=== PATIENT | female | born 1965 | race Caucasian/White ===

== ENCOUNTER 2022-10-01 15:03 | Outpatient (REF) | payer OTHER, SELFPAY ==
[2022-10-01 15:37] LABS: COVID-19 Test Negative (Negative); IDNOW Serial# 16C4AD1C
== END 2022-10-01 15:04 | disposition home or self-care (01) ==
LOC: HO.LAB 15:03
PROVIDERS: Visit Provider Internal Medicine
DX: Z20.822 Contact with and (suspected) exposure to COVID-19 (principal)
CPT/HCPCS: 87635; C9803

== ENCOUNTER 2025-01-22 15:08 | Outpatient (AMB) | payer OTHER, SELFPAY ==
--- NOTE | 2025-01-22 16:02 | AM.OFFWIN_ITS ---
Intake Vital Signs 01/22/25 16:03 Height 5 ft 7 in Weight 278 lb BMI 43.5 BP 116/70 Blood Pressure Location Lt brachial Position Sitting Pulse 92 Pulse Source Pulse Oximeter Temp 97.8 F Temp Source Oral Pulse Oximetry (%) 96 Intake Visit Reasons: [employer] congestion, cough Patient Tobacco Use Status: Never used Tobacco Allergies sulfacetamide [From Sulfacet-R] Allergy (Severe, Verified 01/22/25 16:05) Unknown sulfur [From Sulfacet-R] Allergy (Severe, Verified 01/22/25 16:05) Unknown amoxicillin [From Augmentin] Allergy (Mild, Verified 01/22/25 16:05) Diarrhea clavulanic acid [From Augmentin] Allergy (Mild, Verified 01/22/25 16:05) Diarrhea clindamycin Allergy (Mild, Verified 01/22/25 16:05) Diarrhea duloxetine [From Cymbalta] Allergy (Mild, Verified 01/22/25 16:05) Hives gabapentin Allergy (Mild, Verified 01/22/25 16:05) Hives pregabalin [From Lyrica] Allergy (Mild, Verified 01/22/25 16:05) Hives sarvela Allergy (Mild, Uncoded 01/22/25 16:05) Unknown Do you need a note to return to daycare/school/sports/work: No HPI HPI Comments History of Present Illness Details 60 y/o female patient who presents to [facility] walk in clinic with c/o URI symptoms since this morning. ON LICENSE OF [facility] Medical History (Updated 01/22/25 @ 16:17 by Yocasta Weaver NP) Cough Acute respiratory disease Social History Patient Tobacco Use Status: Never used Tobacco Review of Systems Const All systems reviewed & are unremarkable except as noted in HPI and below Physical Exam Vital Signs: Last Vital Signs Temp 97.8 F 01/22/25 16:03 Pulse 92 01/22/25 16:03 BP 116/70 01/22/25 16:03 Pulse Ox 96 01/22/25 16:03 BMI result Body Mass Index 43.5 Const General: cooperative and no acute distress Nutritional Appearance: obese morbidly obese Orientation/consciousness: patient oriented x3 HEENT Head: Yes normocephalic Ears: external ears normal and TM's normal bilaterally General nose exam: No nasal discharge present Face and sinus: Yes sinus tenderness Mouth: moist mucous membranes Throat: Yes uvula midline Resp Effort & Inspection: normal respiratory effort and able to speak in complete sentences Auscultation: clear to auscultation bilaterally, no crackles, no rales, no rhonchi and no wheezes Cardio Heart sounds: S1 normal heart sound present and S2 normal heart sound present Neuro General: patient oriented x3 Assessment & Plan Assessment & Plan (1) Acute respiratory disease: Code(s): J06.9 - Acute upper respiratory infection, unspecified Plan: OTC cough remedies Rest and hydrate well with warm fluids. (2) Cough: Code(s): R05.9 - Cough, unspecified Qualifiers: Cough type: acute Qualified Code(s): R05.1 - Acute cough Plan: OTC cough remedies Rest and hydrate well with warm fluids. Medications: New benzonatate 200 mg (2 x 100 mg) PO BID 90 caps 0RF cough J06.9 - Acute upper respiratory infection, unspecified, R05.1 - Acute cough dextromethorphan-guaifenesin 5-100 mg/5 mL (Robitussin Cough-Chest Congestion DM) 10 mL PO Q4-8H PRN 1,000 mL 0RF cough J06.9 - Acute upper respiratory infection, unspecified, R05.1 - Acute cough Coding Level of Care Code New Pt Level 4 (24052) Diagnoses Acute respiratory disease J06.9 Acute cough R05.1 Cough type: acute Time Spent (min) 20
[2025-01-22 16:03] VITALS: BP 116/70; PULSE 92; TEMP 36.6; O2SAT 96; BMI 43.5
--- OUTSIDE RECORDS SUMMARY | 2025-01-22 17:25 | XMS_ITS | Encounter Summary ---
Author Organization [facility] Address [address] [place] [address] Care Team Providers Care [employer] M[employer] Name Role Phone Gail Judd Primary Care Provider [phone] Encounter Details Date Type Department Care Team (Late st Contact Info) Description 04/14/2023 Ophthalmology Data Conversion [facility] Ophthalmology [address] [place] [id number] Jennifer Simmons MD [address] [place] [id number] Social History Tobacco Use Types Packs/Day Years Used Date Smoking Tobacco: Never Assessed Comments Unknown Sex and Gender Information Value Date Recorded Sex Assigned at Not on file Legal Sex Female 10:05 AM EDT Gender Identity Not on file Sexual Orientation Not on file documented as of this encounter Plan of Treatment Upcoming Encounters Date Type Department Care Team (Late st Contact Info) Description 04/05/2025 12:00 PM EDT Follow-Up [facility] Ophthalmology [address] [place] [phone] Jennifer Simmons MD [address] [place] [id number] documented as of this encounter Visit Diagnoses Not on filedocumented in this encounter Care Teams [employer] M[employer] Relationship Specialty Start Date End Date Gail Judd [address] [place] [id number] PCP - General Internal Medicine 09/13/23 documented as of this encounter
--- OUTSIDE RECORDS SUMMARY | 2025-01-22 17:25 | XMS_ITS | Clinical Summary ---
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 CHEMISTRY METHOD 11/02/2024 6:58 PM EST [facility] Blood Venous blood specimen / Unknown Venipuncture / Unknown 11/02/2024 3:53 PM EST 11/02/2024 3:53 PM EST us Lay KEENAN LAB BLOOD ORDERABLES Final Result [facility] [address] [place] [address], * Hemoglobin A1c (11/02/2024 3:53 PM EST) Hemoglobin A1C 6.2 <6.5 % LAB CHEMISTRY METHOD 11/02/2024 8:16 PM EST [facility] Mean Bld Glu Estim. 131 mg/dL LAB CHEMISTRY METHOD 11/02/2024 8:16 PM EST [facility] Blood Venous blood specimen / Unknown Venipuncture / Unknown 11/02/2024 3:53 PM EST 11/02/2024 3:53 PM EST us Lay KEENAN LAB BLOOD ORDERABLES Final Result [facility] [address] [place] [address], [place] [phone] * (ABNORMAL) Basic metabolic panel (11/02/2024 3:53 PM EST) Sodium 137 133 - 145 mmol/L LAB CHEMISTRY METHOD 11/02/2024 6:[address] [facility] Potassium 4.3 3.5 - 5.5 mmol/L LAB CHEMISTRY METHOD 11/02/2024 6:[address] [facility] Chloride 103 96 - 110 mmol/L LAB CHEMISTRY METHOD 11/02/2024 6:[address] [facility] CO2 28 21 - 32 mmol/L LAB CHEMISTRY METHOD 11/02/2024 6:[address] [facility] Anion Gap 6 3 - 11 LAB CHEMISTRY METHOD 11/02/2024 6:[address] [facility] Glucose 107(H) 70 - 100 mg/dL LAB CHEMISTRY METHOD 11/02/2024 6:[address] [facility] BUN 21 5 - 25 mg/dL LAB CHEMISTRY METHOD 11/02/2024 6:[address] [facility] Creatinine 0.83 0.50 - 1.10 mg/dL LAB CHEMISTRY METHOD 11/02/2024 6:[address] [facility] eGFR 82 >=60 mL/min/1. 73m2 LAB CHEMISTRY METHOD 11/02/2024 6:[address] [facility] Comment:Calculation based on the??Chronic Kidney Disease Epidemiology Collaboration (CKD-EPI) equation refit??without adjustment for race. BUN/Creatinine Ratio 25.3 LAB CHEMISTRY METHOD 11/02/2024 6:[address] [facility] Calcium 9.2 8.5 - 10.5 mg/dL LAB CHEMISTRY METHOD 11/02/2024 6:46 PM EST [facility] Blood Venous blood specimen / Unknown Venipuncture / Unknown 11/02/2024 3:53 PM EST 11/02/2024 3:53 PM EST us Ioana Carbajal MD LAB BLOOD ORDERABLES Final Resul t [facility] ([facility]) [facility] [address] [place] [address], * ANT SCREENING DIGITAL (05/25/2024 11:50 AM EDT) Anatomical Region Laterality Modality Mammography 05/25/2024 9:50 AM EDT Narrative 05/25/2024 11:50 AM EDT [facility] Diagnostic Imaging Department [address] [place] [address] Patient: ??SASHA ROUSSEAU ?/Age/Sex: 1965 - 59 - F Unit#: ??[id number] ? Location/Status: ??SPDIMAM/REG CLI ? Mnemonic/Ordering Site: ??DIGSC/SPMAM Ordering Physician: ??CLAUDY JUDD MD Ant Screening Digital - 05/25/24 - 1013 Report Status:Signed EXAM: Ant Screening Digital EXAM DATE AND TIME: 05/25/2024 10:13 AM HISTORY: ??Screening. Reduction mammoplasty in 1983. COMPARISON: ??02/17/23, 11/09/18, 05/20/15 TECHNIQUE: Bilateral digital breast tomosynthesis was performed in the CC and MLO projections. Computer aided detection with [employer] 3D 3.1 was employed. TISSUE DENSITY: a. The breasts are almost entirely fatty. FINDINGS: A new 3 mm circumscribed nodule is seen in the axillary tail of the left breast, close to the lateral skin line. This is not visualized in the CC proje ction. MLO spot compression tomosynthesis views and exaggerated CC tomosynthesis views of the left breast are recommended. No grouped microcalcifications or areas of architectural distortion are seen. The skin and vascularity are unremarkable. IMPRESSION: 1. 3 mm left breast nodule, for which additional views are recommended. The patient will be called back. 2. Stable mammographic appearance of the right breast. No evidence of malignancy is seen. BI-RADS: ??Category 0: Incomplete - Need Additional Imaging Evaluation RECOMMENDATION(S): 1: Special mammographic view(s) needed LEFT Dictating Physician: ??YAS BERMAN MD Electronically Signed by: ??YAS BERMAN MD Dic Date/Time: ??05/25/24 1148 Sign date/Time: ??05/25/24 1150 Procedure Note Yas Berman MD - 09/13/2024 [facility] Diagnostic Imaging Department [address] [place] [address] Patient: SASHA ROUSSEAU /Age/Sex: 1965 - 59 - F Unit#: [id number] Location/Status: [facility] CLI Mnemonic/Ordering Site: [facility] Ordering Physician: CLAUDY JUDD MD Ant Screening Digital - 05/25/24 - 1013 Report Status:Signed EXAM: Ant Screening Digital EXAM DATE AND TIME: 05/25/2024 10:13 AM HISTORY: Screening. Reduction mammoplasty in 1983. COMPARISON: 02/17/23, 11/09/18, 05/20/15 TECHNIQUE: Bilateral digital breast tomosynthesis was performed in the CCand MLO projections. Computer aided detection with [employer] 3D 3.1was employed. TISSUE DENSITY: a. The breasts are almost entirely fatty. FINDINGS: A new 3 mm circumscribed nodule is seen in the axillary tail of the left breast, close to the lateral skin line. This is not visualized in the CCproje ction. MLO spot compression tomosynthesis views and exaggerated CCtomosynthesis views of the left breast are recommended. No grouped microcalcifications or areas of architectural distortion areseen. The skin and vascularity are unremarkable. IMPRESSION: 1. 3 mm left breast nodule, for which additional views are recommended.The patient will be called back. 2. Stable mammographic appearance of the right breast. No evidence of malignancy is seen. BI-RADS: Category 0: Incomplete - Need Additional Imaging Evaluation RECOMMENDATION(S): 1: Special mammographic view(s) needed LEFT Dictating Physician: YAS BERMAN MD Electronically Signed by: YAS BERMAN MD Dic Date/Time: 05/25/24 1148 Sign date/Time: 05/25/24 1150 Claudy Judd MD IMG BI PROCEDURES Final Result * HIV Screening (04/17/2024) Pathologist [facility] HIV Screening abstracted Historical Provider HEALTH MAINTENANCE Final Result * Hepatitis C Screening (04/17/2024) [facility] Hepatitis C Screening abstracted Result [facility] Provider HEALTH MAINTENANCE Final Result * (ABNORMAL) Lipid panel (04/17/2024) [facility] LDL/HDL Ratio 4 0 - 4 Triglycerides 270(A) 0 - 150 mg/dL Cholesterol 142 0 - 200 mg/dL HDL 38(A) >=40 mg/dL LDL Cholesterol 50 0 - 100 mg/dL Blood Venous blood specimen / Unknown Result [facility] Provider LAB BLOOD ORDERABLES Nati l Result * Urine Albumin Creatinine Ratio (02/28/2024) [facility] Urine Albumin Creatinine Ratio abstracted Result [facility] Provider HEALTH MAINTENANCE Final Result * Diabetes Foot Exam (01/19/2024) [facility] Diabetes: Annual Foot Exam abstracted Result [facility] Provider HEALTH MAINTENANCE Final Result * Colonoscopy (06/28/2015) [facility] Colonoscopy no interpretation , abstracted Anatomical Region Laterality Modality Other Result [facility] Provider HEALTH MAINTENANCE Final Result * Cervical Cancer Screening: HPV (01/13/2012) [facility] Cervical Cancer Screening: HPV negative, abstracted Result [facility] Provider HEALTH MAINTENANCE Final Result from Last 3 Months or Most Recently Relevant to Health Maintenance [place] [address] [place] [address] [employer] PLAN Care Teams Hitcher Relationship Specialty Start Date End Date Claudy Judd MD [address] [facility] [address] [place] [address] PCP - General Internal Medicine 06/13/21
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
--- OUTSIDE RECORDS SUMMARY | 2025-01-22 17:25 | XMS_ITS | Encounter Summary ---
Author Organization [facility] Address [address] [place] [address] Care Team Providers Care Entry Tech Name Role Phone Gail Judd Primary Care Provider Encounter Details Date Type Department Care Team (Late st Contact Info) Description 04/14/2023 Ophthalmology Data Conversion [facility] Ophthalmology [address] [place] [phone] Jennifer Simmons MD [address] [place] [phone] Social History Tobacco Use Types Packs/Day Years [...] Info) Description 04/05/2025 12:00 PM EDT Follow-Up [facility] Ophthalmology [address] [place] [phone] Jennifer Simmons MD [address] [place] [phone] documented as of this encounter Visit Diagnoses Not on filedocumented in this encounter Care Teams Entry Tech Relationship Specialty Start Date End Date Gail Judd [address] [place] [phone] PCP - General Internal Medicine 09/13/23 documented as of this encounter
--- OUTSIDE RECORDS SUMMARY | 2025-01-22 17:25 | XMS_ITS | Encounter Summary ---
Author Organization [address] [place] [address] Care Team Providers Care Reimbursement Consultant Name Role Phone Gail Judd MD Primary Care Provider [phone] Reason for Visit * Reason Onset Date Comments appointment 01/22/2025 Encounter Details Date Type Department Care Team ([facility] st Contact Info) Description 01/22/2025 Telephone [facility] 175 [facility] [address] [place] [phone] Ioana Carbajal MD 175 [facility] [address] [place] [address] appointment Social History Tobacco Use Types Packs/Day Years [...] PM EDT documented as of this encounter Progress Notes * Flores Cary - 01/22/2025 11:04 AM EST Patient called requesting a sooner a patient since she's been coughing, has congestion and had a fever yesterday. Was advice to visit urgent care since she had fever yesterday. Patient asked for urgent care locations, a couple of urgent care were mentioned. She will call her insurance to ask for recommendations on urgent cares that accept her insurance. documented in this encounter Plan of Treatment Upcoming Encounters Date Type Department Care Team (Late st Contact Info) Description 01/26/2025 9:00 AM EST Ancillary Procedure [facility] - [facility] 101 300 [facility] 101 [place] [address] 03/12/2025 1:00 PM EDT Consult Orthopedic Surgery - [place] 250 175 [facility] 250 [place] [address] Jero Steven DPM 175 [facility] 250 [place] [address] 03/20/2025 2:45 PM EDT Office Visit Bariatric Surgery - [place] 175 [facility] 120 [place] [phone] Sadi Read MD 175 [facility] 120 [place] [address] 04/03/2025 10:30 AM EDT Office Visit Internal Medicine - [place] 175 [facility] 200 [place] [phone] Meghana Bassett NP 175 [facility] 200 [place] [address] 04/16/2025 11:30 AM EDT Office Visit Vascular Surgery - [place] 300 [facility] [address] [place] [phone] Cielo Mitchell PA [address] [place] [address] 06/18/2025 2:30 PM EDT Office Visit Pulmonolgy - [place] [address] [place] [phone] Ioana Carbajal MD 175 [facility] 200 [place] [address] documented as of this encounter Visit Diagnoses Not on filedocumented in this encounter Additional Health Concerns Assessment Noted Time PHQ-9 Depression Total Score: 12 025 11:52 AM EST documented as of this encounter Care Teams Reimbursement Consultant Relationship Specialty Start Date End Date Gial Judd MD 175 [facility] 200 [place] [phone] PCP - General Internal Medicine 06/13/21 documented as of this encounter
--- OUTSIDE RECORDS SUMMARY | 2025-01-22 17:25 | XMS_ITS | Referral Summary ---
Author Organization [facility] Address [address] [place] [address] Care Team Providers Care Commodity Broker Name Role Phone Gail Judd Primary Care Provider [phone] Active Problems Problem Noted Date Diagnosed Date Glaucoma suspect of both eyes 09/14/2023 Social History Tobacco Use Types Packs/Day Years Used Date Smoking Tobacco: Never Assessed Comments Unknown Sex and Gender Information Value Date Recorded Sex Assigned at Not on file Legal Sex Female 10:05 AM EDT Gender Identity Not on file Sexual Orientation Not on file Plan of Treatment Upcoming Encounters Date Type Department Care Team (Late st Contact Info) Description 04/05/2025 12:00 PM EDT Follow-Up [facility] Medical [facility] Ophthalmology [address] [place] [address] Jennifer Simmons MD 20 [place] [address] Insurance [facility] MEDICAID Care Teams Commodity Broker Relationship Specialty Start Date End Date Gail Judd [address] [place] [address] PCP - General Internal Medicine 09/13/23
--- OUTSIDE RECORDS SUMMARY | 2025-01-22 17:25 | XMS_ITS | Encounter Summary ---
Author [place] [address] Care Team Providers Care Lozenge Maker Name Role Phone Gail Judd MD Primary Care Provider [phone] Reason for Visit * Reason Onset Date Comments Medical Records 01/18/2025 Encounter Details Date Type Department Care Team (Late st Contact Info) Description 01/18/2025 Telephone [facility]iology Associates [facility] [address] [place] [phone] Gail Judd MD [address] [place] [address] Medical Records Social History Tobacco Use Types Packs/Day Years [...] as of this encounter Progress Notes * Shira Yosi - 01/18/2025 4:32 PM EST Faxed [facility] record request to [employer] Copying service at [phone] on 01/02/2025 documented in this encounter Plan of Treatment Upcoming Encounters Date Type Department Care Team (Late st Contact Info) Description 01/26/2025 9:00 AM EST Ancillary Procedure [facility] - [facility] 101 300 [facility] 101 [place] [address] 03/12/2025 1:00 PM EDT Consult Orthopedic Surgery - [place] 250 175 [facility] 250 [place] [phone] Jero Steven DPM 175 [facility] 250 [place] [address] 03/20/2025 2:45 PM EDT Office Visit Bariatric Surgery [facility] 175 [facility] 120 [place] [phone] Sadi Read MD 175 [facility] 120 [place] [address] 04/03/2025 10:30 AM EDT Office Visit Internal Medicine - [place] 175 [facility] 200 [place] [phone] Meghana Bassett NP 175 [facility] 200 [place] [address] 04/16/2025 11:30 AM EDT Office Visit Vascular Surgery - [place] 300 [facility] [address] [place] [phone] Cielo Mitchell PA 300 [facility] 210 [place] [address] 06/18/2025 2:30 PM EDT Office Visit Pulmonolgy - [place] [address] [phone] Ioana Carbajal MD [address] [address] documented as of this encounter Visit Diagnoses Not on filedocumented in this encounter Additional Health Concerns Assessment Noted Time PHQ-9 Depression Total Score: 12 025 11:52 AM EST documented as of this encounter Care Teams Lozenge Maker Relationship Specialty Start Date End Date Gail Judd MD [address] [phone] PCP - General Internal Medicine 06/13/21 documented as of this encounter
--- OUTSIDE RECORDS SUMMARY | 2025-01-22 17:25 | XMS_ITS | Clinical Summary ---
Author Organization [facility] Address [address] [place] [address] Care Team Providers Care Ripsawyer Name Role Phone Gail Judd Primary Care Provider [phone] Active Problems Problem Noted Date Diagnosed Date [...] Info) Description 04/05/2025 12:00 PM EDT Follow-Up [facility] Ophthalmology [address] [place] [address] Jennifer Simmons MD 20 [place] [address] Health Maintenance Due Date Last Done Comments Cervical Cancer Screening 1965 Cologuard 1967 Colon Cancer Screening 1965 Colonoscopy 1967 FOBT / Fit Test 1965 HIV Screening 1965 HPV and Pap Smear 1967 Hepatitis C Screening 1967 Pap Smear 1967 Sigmoidoscopy 1967 Hepatitis B Vaccines (1 of 3 - 19+ 3-dose series) 1986 Mammogram 2007 Pneumococcal Vaccine: 50+ Ye ars (2 of 2 - PCV) 09/05/2013 09/05/2012, 10/30/2009 Zoster Vaccines (1 of 2) 2017 DTaP,Tdap,and Td Vaccines (2 - Td or Tdap) 05/14/2021 05/14/2011 COVID-19 Vaccine (3 - 2023-2 5 season) 2024 04/16/2021, 03/26/2021 Influenza Vaccine (#1) 2024 9, 01/19/2019, 10/26/2017, Additional history exists Alcohol/Substance Use Screening 11/29/2024 Depression Screening and Follow-Up 11/29/2024 Social Drivers of Health Emmie ual Screening 11/29/2024 RSV Vaccine (60+ years old a nd patients) (1 - 1-dose 75+ series) 2042 Insurance [employer] MEDICA[employer] Care Teams Ripsawyer Relationship Specialty Start Date End Date Gail Judd [address] [place] [address] PCP - General Internal Medicine 09/13/23
--- OUTSIDE RECORDS SUMMARY | 2025-01-22 17:25 | XMS_ITS | Encounter Summary ---
Author Organization [place] [address] Care Team Providers Care Supersonic Engineer Name Role Phone Gail Judd MD Primary Care Provider [phone] Reason for Visit * Reason Onset Date Comments prior auth 12/12/2024 Encounter Details Date Type Department Care Team ([facility] st Contact Info) Description 12/12/2024 Telephone Bariatric Surgery - [place] 175 [facility] [address] [place] [phone] Juany Leon MA prior auth Social History Tobacco Use Types Packs/Day Years [...] as of this encounter Progress Notes * Lorna Pineda - 12/18/2024 3:09 PM EST Please follow up with patient about PA. Patient has been waiting since Aug. Pharmacy has informed her that she needs it * Juany Leon MA - 12/12/2024 2:24 PM EST Pt calling the office . Pt wants to know what's going on with her injection medication. She states she been waiting a while. Want to know if knew prior auth was done. Please call back pt at [phone] documented in this encounter Plan of Treatment Upcoming Encounters Date Type Department Care Team (Late st Contact Info) Description 01/26/2025 9:00 AM EST Ancillary Procedure [facility] - [facility] 101 300 [facility] 101 [place] [phone] 03/12/2025 1:00 PM EDT Consult Orthopedic Surgery - [place] 250 175 [facility] 250 [place] [phone] Jero Steven DPM 175 [facility] 250 [place] [address] 03/20/2025 2:45 PM EDT Office Visit Bariatric Surgery - [place] 175 [facility] 120 [place] [phone] Sadi Read MD 175 [facility] 120 [place] [address] 04/03/2025 10:30 AM EDT Office Visit Internal Medicine - [place] 175 [facility] 200 [place] [phone] Meghana Bassett NP 175 [facility] 200 [place] [address] 04/16/2025 11:30 AM EDT Office Visit Vascular Surgery - [place] 300 [facility] [address] [place] [address] Cielo Mitchell PA 300 [facility] 210 [place] [address] 06/18/2025 2:30 PM EDT Office Visit Pulmonolgy - [place] 175 [facility] 200 [place] [phone] Ioana Carbajal MD 175 [facility] 200 [place] [address] documented as of this encounter Visit Diagnoses Not on filedocumented in this encounter Care Teams Supersonic Engineer Relationship Specialty Start Date End Date Gail Judd MD [address] [phone] PCP - General Internal Medicine 06/13/21 documented as of this encounter
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
== END 2025-01-22 16:16 | disposition home or self-care (01) ==
PROVIDERS: Visit Provider Nurse Practitioner Family
DX: J06.9 Acute upper respiratory infection, unspecified (principal); R05.1 Acute cough

== ENCOUNTER → 2025-01-22 15:08 | Outpatient (BNVA) | payer OTHER, SELFPAY | DX: J06.9 Acute upper respiratory infection, unspecified (principal); R05.1 Acute cough | CPT/HCPCS: 99202 ==

== ENCOUNTER 2025-06-21 14:09 | Outpatient (AMB) | payer OTHER, SELFPAY ==
--- OUTSIDE RECORDS SUMMARY | 2025-06-21 14:13 | XMS_ITS ---
Author Name [facility] Organization Unknown Care Team Organization Name Specialty Phone Email Start Date End Da pablo [facility] 10/06/2022 07/17/20 24
--- OUTSIDE RECORDS SUMMARY | 2025-06-21 14:13 | XMS_ITS | Encounter Summary ---
Author Organization [facility] Address [address] [place] [address] Care Team Providers Care Professor Of Business Administration Name Role Phone Gail Judd Primary Care Provider [phone] Encounter Details Date Type Department Care Team (Late st Contact Info) Description 04/14/2023 Ophthalmology Data Conversion [facility] Ophthalmology [address] [place] [address] Jennifer Simmons MD [address] [place] [address] Social History Tobacco Use Types Packs/Day Years Used Date Smoking Tobacco: Never Assessed Comments Unknown Sex and Gender Information Value Date Recorded Sex Assigned at Not on file Legal Sex Female 10:05 AM EDT Gender Identity Not on file Sexual Orientation Not on file documented as of this encounter Plan of Treatment Not on file documented as of this encounter Visit Diagnoses Not on filedocumented in this encounter Care Teams Professor Of Business Administration Relationship Specialty Start Date End Date Gail Judd [address] [place] [address] PCP - General Internal Medicine 09/13/23 documented as of this encounter
--- OUTSIDE RECORDS SUMMARY | 2025-06-21 14:13 | XMS_ITS | Clinical Summary ---
Author Organization Patient Business Ser [facility] Address [address] [place] [address] Care Team Providers Care Watchmaking Teacher Name Role Phone Claudy Judd MD Primary Care Provider [phone] Allergies Active Allergy Reactions Criticality Noted Date Comments Amoxicillin-Pot Clavulanate Rash 02/29/20 15 Diarrhea Canagliflozin Rash 08/22/2020 Vaginal pruritus Citalopram Rash 05/03/2014 Clindamycin Diarrhea 11/08/2024 Duloxetine Hives 08/02/2012 Gabapentin Rash 09/30/2012 Glipizide Hives 08/22/2020 House Dust 08/05/2016 Metformin Diarrhea High 08/22/2020 Milnacipran Hives 08/02/2012 Other 10/03/2024 Seasonal Pollen Extracts 08/05/2016 Prednisone Hives,Wheezing 12/06/2014 Pregabalin Hives 11/08/2024 Sulfa (Sulfonamide Antibiotics) Anaphylaxis High 01/27/2006 Medications pramoxine 1 % lotion Apply 1 g topically. 02/04/20 24 Active meclizine (ANTIVERT) 12.5 mg tablet Take 1 tablet (12.5 mg total) by mouth. 02/04/20 24 Active ondansetron (ZOFRAN) 4 mg tablet Take 1 tablet (4 mg total) by mouth. 01/20/20 24 Active albuterol HFA (PROAIR HFA ; PROVENTIL HFA ; VENTOLIN HFA) 90 mcg/actuation inhaler Inhale 2 puffs by mouth. 11/23/20 23 Active albuterol 2.5 mg /3 mL (0.083 %) nebulizer solution Inhale 3 mL (2.5 mg total) by mouth. 11/23/20 23 Active fexofenadine (JAKUB) 180 mg tablet Take 1 tablet (180 mg total) by mouth 1 (one) time each day. 11/23/20 23 Active venlafaxine (EFFEXOR) 37.5 mg tablet Take 1 tablet (37.5 mg total) by mouth 1 (one) time each day. Active flash glucose scanning reader (Hipcamp LACY 2 READER MISC) 1 Device by Not Applicable route. 02/05/20 23 Active venlafaxine XR (EFFEXOR-XR) 75 mg 24 hr capsule Take 1 capsule (75 mg total) by mouth 1 (one) time each day. 12/08/19 22 Active hydrOXYzine pamoate (VISTARIL) 25 mg capsule Take 1 capsule (25 mg total) by mouth 1 (one) time each day. 12/08/19 22 Active methenamine hippurate (HIPREX) 1 gram tablet TK 1 T PO BID 06/06/20 19 Active rOPINIRole (REQUIP) 0.25 mg tablet Take 1 tablet (0.25 mg total) by mouth. 02/26/20 17 Active simethicone (MYLICON) 80 mg chewable tablet Chew 1 tablet (80 mg total) 2 (two) times a day. 11/08/20 24 Active omeprazole (PriLOSEC) [address] capsule Take 1 capsule (20 mg total) by mouth 1 (one) time each day. 90 capsule 3 12/05/19 25 Active topiramate (TOPAMAX) 50 mg tablet TAKE 1 TABLET BY MOUTH DAILY FOR 30 DAYS. 30 tablet 1 12/07/19 25 Active estradioL (ESTRACE) 0.01 % (0.1 mg/gram) vaginal creamIndicatio ns:Vaginal dryness Insert 4 g into the vagina 1 (one) time each day. 42.5 g 11 01/04/20 25 Active flash glucose sensor (FreeStyle Lacy 2 Sensor) kit Apply 1 EA topically every 14 (fourteen) days. 6 each 3 01/16/20 25 Active ketoconazole (NIZORAL) 2 % cream Apply topically 2 (two) times a day. 30 g 2 01/26/20 25 Active cyclobenzaprin e (FLEXERIL) 10 mg tablet TAKE 1 TABLET BY MOUTH 3 TIMES DAILY NEEDED FOR MUSCLE SPASMS. 90 tablet 1 02/27/20 25 Active loratadine (CLARITIN) 10 mg tablet Take 1 tablet (10 mg total) by mouth 1 (one) time each day. 90 tablet 2 02/27/20 25 Active pen needle, diabetic 32 gauge x 32 needle 1 each by Not Applicable route 2 (two) times a day. 100 each 3 03/01/20 25 Active montelukast (SINGULAIR) 10 mg tablet Take 1 tablet (10 mg total) by mouth at bedtime. at bedtime. 30 tablet 2 03/14/20 25 Active ferrous sulfate 325 mg (65 mg iron) EC tablet TAKE 1 TABLET BY MOUTH DAILY. 30 tablet 4 04/02/20 25 Active oxymetazoline (Afrin, oxymetazoline, ) 0.05 % nasal sprayIndicatio ns:Nasal congestion Administer 2 sprays into each nostril 2 (two) times a day for 3 days. 30 mL 04/03/20 25 Active tirzepatide, weight loss, (Zepbound) 5 mg/0.5 mL solutionIndica tions:BMI 40.0-44.9, adult ([facility] V24, [facility] V28) Inject 5 mg under the skin every 7 (seven) days. 2 mL 3 04/03/20 25 Active Pure Comfort Safety Lancets 30 gauge misc USE DIRECTED TWICE DAILY 100 each 04/12/20 25 Active blood sugar diagnostic (FreeStyle Lite Strips) test strip USE TO TEST BLOOD SUGARS 3 TIMES DAILY 100 each 2 04/12/20 25 Active isosorbide mononitrate (IMDUR) 60 mg 24 hr tablet TAKE 1 TABLET BY MOUTH DAILY. 90 tablet 1 04/12/20 25 Active nystatin (MYCOSTATIN) 100,000 unit/gram powder Apply topically 3 (three) times a day. 90 g 10 04/20/20 25 Active rosuvastatin (CRESTOR) 5 mg tablet TAKE 1 TABLET BY MOUTH DAILY. 90 tablet 1 05/04/20 25 Active diclofenac (VOLTAREN) 1 % topical gel APPLY 1 DOSE TOPICALLY 2 TIMES DAILY. 100 g 4 05/15/20 25 Active diclofenac (Voltaren Arthritis Pain) 1 % topical gel Apply 4 g topically 2 (two) times a day. 240 g 1 05/16/20 25 025 Active ibuprofen (ADVIL,MOTRIN) 600 mg tablet Take 1 tablet (600 mg total) by mouth every 8 (eight) hours if needed for moderate pain. for pain 60 tablet 1 05/18/20 25 Active insulin lispro (HumaLOG KwikPen) 100 unit/mL injection pen INJECT THREE TIMES DAILY BEFORE MEALS PER SCALE: 100-149: 28U, 150-199:30U, 200-249:32U, 250-299:34U, 300-349:36U, 350-399:38U, >/=400:40U AND CALL MD, plus 6 units for snack 45 mL 06/06/20 25 Active insulin glargine (Lantus Solostar U-100 Insulin) 100 unit/mL (3 mL) injection pen 45 units SC twice a day 15 mL 06/06/20 25 Active furosemide (LASIX) 20 mg tabletIndicati ons:Water retention TAKE 1 TABLET (20 MG TOTAL) BY MOUTH 1 (ONE) TIME EACH DAY. 30 tablet 1 06/14/20 25 Active Baqsimi 3 mg/actuation nasal spray USE 3 MG BY NASAL ROUTE NEEDED (LOW GLUCOSE). 2 each 06/14/20 25 Active aspirin 81 mg EC tablet Take 1 tablet (81 mg total) by mouth 1 (one) time each day. 90 tablet 1 06/15/20 25 Active True Comfort Safety Pen Needle 32 gauge x 5/32 needle USE 1 DEVICE BY DOES NOT APPLY ROUTE 2 TIMES DAILY. 100 each 3 06/19/20 25 Active fluticasone furoate-vilant Juan (Breo Ellipta) 200-25 mcg/dose inhaler Inhale 1 puff by mouth 1 (one) time each day. 1 each 06/18/20 25 026 Active fluticasone furoate-vilant Juan (Breo Ellipta) 200-25 mcg/dose inhaler INHALE 1 PUFF BY MOUTH BY MOUTH EVERY DAY 09/07/20 24 025 Discontinued(Re order) tiotropium (Spiriva Respimat) 2.5 mcg/actuation inhalation spray Inhale 1 puff by mouth. 03/03/20 24 025 Discontinued aspirin 81 mg EC tablet Take 1 tablet (81 mg total) by mouth 1 (one) time each day. 09/30/20 025 Discontinued(Re order) glucagon (Baqsimi) 3 mg/actuation nasal spray USE 3 MG BY NASAL ROUTE NEEDED (LOW GLUCOSE). 11/10/20 025 Discontinued insulin glargine (Lantus Solostar U-100 Insulin) 100 unit/mL (3 mL) injection pen 66 units SC twice a day 02/17/20 025 Discontinued(Re order) insulin lispro (HumaLOG KwikPen) 100 unit/mL injection pen INJECT THREE TIMES DAILY BEFORE MEALS PER SCALE: 100-149: 28U, 150-199:30U, 200-249:32U, 250-299:34U, 300-349:36U, 350-399:38U, >/=400:40U AND CALL MD, plus 6 units for snack 15 mL 5 04/19/20 025 Discontinued(Re order) furosemide (LASIX) 20 mg tabletIndicati ons:Water retention TAKE 1 TABLET (20 MG TOTAL) BY MOUTH 1 (ONE) TIME EACH DAY. 30 tablet 2 05/09/20 025 Discontinued Active Problems Problem Noted Date Diagnosed Date History of 2019 novel coronavirus disease (COVID -19) 09/22/2024 Microvascular angina (CMS/HCC V24) 05/26/2023 Overview (09/22/2024): Last Assessment & Plan: [...] the patient has been seen by the [facility]. The patient is supposed [...] Seen by neurologist Dr. Arteaga, following with sheltered workshop executive director Dr. Katiuska Chapman at [facility] cardiology Dyspnea 05/05/2021 Overview (09/22/2024): Last Assessment [...] with Dr. Sanon who is a cardiac emergency medicine specialist who interpreted the study. The myocardial [...] right hand 11/22/2020 Overview (09/22/2024): Dr Martinez ([facility]) Gastroesophageal reflux disease 06/08/2019 Diabetes mellitus type 2 wit h neurological manifestations (CMS/HCC V24, CMS/HCC V28) 10/17/2016 Pelvic mass 06/22/2016 Obstructive sleep apnea [...] Encounters Date Type Department Care Team Description 06/18/2025 2:30 PM EDT Office Visit Pulmonolgy - [place] 175 [facility] [address] [place] [phone] Ioana Carbajal MD Mild persistent asthma, unspecified whether complicated (Primary Dx); Obstructive sleep apnea 06/06/2025 2:00 PM EDT Telemedicine Endocrinology [address] [phone] Lay Rawls PA Diabetes mellitus type 2 with neurological manifestations (CMS/HCC V24, CMS/HCC V28) (Primary Dx); Hypothyroidism, unspecified type 05/16/2025 1:15 PM EDT Office Visit Orthopedic Surgery - [place] 250 175 [facility] [address] [place] [phone] Jero Steven DPM Controlled type 2 diabetes with neuropathy (CMS/HCC V24, CMS/HCC V28) (Primary Dx); Pain in both feet; Arthritis of both feet; Lumbosacral radiculopathy; Dermatophytosis, nail 05/04/2025 2:30 PM EDT Nutrition Internal Medicine - [place] 175 [facility] [address] [place] [address] Morbid obesity ([facility] V24, [facility] V28) (Primary Dx) 04/16/2025 11:30 AM EDT Office Visit Vascular Surgery - [place] 300 [facility] [address] [place] [phone] Cielo Mitchell PA Leg swelling (Primary Dx) 04/11/2025 Telephone Endocr[address] [phone] Lay Rawls PA Hypoglycemia 04/03/2025 10:30 AM EDT Office Visit Internal Medicine - [place] 175 [facility] [address] [place] [phone] Meghana Bassett NP Gastroesophageal reflux disease, unspecified whether esophagitis present (Primary Dx); Regurgitation of food; Bacterial URI; Nasal congestion; Antibiotic-induced yeast infection; Unsteady gait; Dyspnea, unspecified type; Type 2 diabetes mellitus without complication, without long-term current use of insulin ([facility] V24, [facility] V28); Polyneuropathy; Vaginal dryness; Water retention; BMI 40.0-44.9, adult ([facility] V24, [facility] V28); Hair loss from Last 3 Months Immunizations Name Administration Dates Next Due Influenza Quadravalent, MDCK , 0.5ml, preservative free (Flucelvax) 6mo and older 10/25/2019,01/19/2019 Influenza Quadravalent, MDCK , 0.5ml, with preservative (Flucelvax) 6mo and older 10/26/2017 Influenza trivalent, 0.5mL, preservative free (Fluarix; FluLaval; Fluzone) ages 6mo and older (Afluria) 3 years and older 08/26/2015,08/05/2010,08/20/2009,11/02 GoSquared SARS-CoV-2 COVID-19, mRNA, LNP-S, preservative free 04/16/2021,03/26/2021 Pneumococcal polysaccharide 23 valent (Pneumovax 23) 2yo and older 09/05/2012 Tdap Tetanus diptheria acell ular pertussis (Boostrix; Adacel) 7yo and older 05/14/2011 Surgical History Surgery Date Site/Laterality Comments OTHER SURGICAL HISTORY 1965 PROCEDURE: NC FTH/GF FR W/DIR CLSR F/C/C/M/N/AX/G/H/F 20SQCM/< OTHER SURGICAL HISTORY 1965 PROCEDURE: NC FTH/GFT FR W/DIR CLSR TRNK EA ADDL 20 SQ CM HYSTERECTOMY PROCEDURE: HISTORICAL HYSTERECTOMY SECTION x5 PROCEDURE: HISTORICAL DELIVERY CHOLECYSTECTOMY 2004 PROCEDURE: LAPAROSCOPY, CHOLECYSTECTOMY ESOPHAGOGASTRODUODENOSCOPY 09/08/2012 PROCEDURE: NC EGD TRANSORAL BIOPSY SINGLE/MULTIPLE; COMMENT: erosive gastritis: [...] elsewhere classified; COMMENT: followed by psychiatrist at [facility] in [place], [place] Lumbago 08/20/2009 DX:Lumbago; COMM ENT: [facility] Asthma 11/07/2009 DX:Asthma; COMME NT: Followed by [facility] at [place], [place], [employer] Family history of breast cancer DX:Family history of breast cancer; COMMENT: pt BRCA neg 11/16/2013-low risk Family history of malignant neoplasm of gastrointestinal tract 05/22/2014 DX:Family history of maligna nt neoplasm of gastrointestinal tract; COMMENT: Second degree relatives x2 with colon cancer. Genetic testing for Lindsey syndrome negative in 2012. Negative colonoscopy 08/22/2004 at the [facility]. Colonoscopy indicated every 10 years. Chronic headaches 09/30/2012 DX:Chronic hea daches; COMMENT: Saw Dr. Arteaga Chronic pain 09/30/2012 DX:Chronic pain Hypothyroid 03/10/2011 DX:Hypothyroid Impaired fasting glucose 08/12/2011 DX:Impa ired fasting glucose Kidney stones 01/19/2011 DX:Kidney stones ; COMMENT: [facility] urology RLS (restless legs syndrome) 01/18/2014 DX: RLS (restless legs syndrome) Diabetes type 2, uncontrolled DX :Diabetes type 2, uncontrolled Recurrent syncope DX:Recurrent s yncope; COMMENT: Seen by neurologist Dr. Arteaga, following with sheltered workshop executive director Dr. Katiuska Chapman at [facility] cardiology Family History Medical History Relation Name [...] Sign Reading Time Taken Comments Blood Pressure 126/60 06/18/2025 2:49 PM EDT Pulse 100 06/18/2025 2:49 PM EDT Temperature 36.4 C (97.5 F) 06/18/2025 2:49 PM EDT Respiratory Rate 20 06/18/2025 2:49 PM EDT Oxygen Saturation 95% 06/18/2025 2:49 PM EDT Inhaled Oxygen Concentration - - Weight 120 kg (265 lb) 05/04/2025 2:44 PM EDT Height 167.6 cm (5' 6 ) 05/04/2025 2:44 PM EDT Body Mass Index 42.77 05/04/2025 2:44 PM EDT Plan of Treatment Upcoming Encounters Date Type Department Care Team (Late st Contact Info) Description 07/05/2025 1:45 PM EDT Office Visit Bariatric Surgery [facility] [address] [phone] Sadi Read MD [address] [address] 07/06/2025 1:20 PM EDT Consult Gastroenterology [address] [phone] Ernestina Nichols NP [address] [address] 07/18/2025 1:45 PM EDT Office Visit Orthopedic Surgery [facility] 250 175 [facility] [address] [place] [phone] Jero Steven DPM [address] [address] 09/05/2025 2:15 PM EDT Office Visit Endocrinology [address] [phone] Lay Rawls PA [address] [place] [address] 09/06/2025 2:00 PM EDT Nutrition Internal Medicine - [place] 175 [facility] [address] [place] [phone] Delia Holt, ROSEMARIE 175 [place] [phone] 09/27/2025 2:40 PM EDT Office Visit [facility] [address] [place] [address] Dr Kenny [address] [place] [phone] Nataliya Garrett, BLOSSOM [address] [place] [address] [place] [address] 12/19/2025 1:15 PM EST Office Visit Pulmonolgy - [place] 175 [facility] [address] [place] [phone] Ioana Carbajal MD [address] [address] Health Maintenance Due Date Last Done Comments [...] COVID-19 Vaccine ( season) 2024 04/16/2021, 03/26/2021 Diabetes: Annual Foot Exam 01/19/2025 01/19/2024, Diabetes: Annual Urine Albumin-Creatinine Ratio (uACR) 02/27/2025 02/28/2024, 02/28/2024 Influenza Vaccine (#1) 2025 9, 01/19/2019, 10/26/2017, Additional history exists Diabetes: Annual GFR (Glomerular Filtration Rate) 11/02/2025 11/02/2024, 04/17/2024, 04/17/2024 Diabetes: Blood Sugar Control Test (HGBA1C) 12/01/2025 05/31/2025, 11/02/2024, 02/28/2024, Additional history exists Breast Cancer Screening 05/30/2026 05/30/20 24, 05/25/2024, 02/17/2023, Additional history exists Cholesterol Screening (Lipid Panel) 04/17/2029 04/17/2024, 04/17/2024 HIV Screening Completed 04/17/2024, 04/17/2024 Hepatitis C Screening Completed 04/17/2024 Depression Screening Completed 01/01/2025 HIB Vaccines Aged Out No longer eligi [...] age to complete this topic Meningococcal B Vaccine Aged Out No l onger eligible based on patient's age to complete this topic RSV Immunization Patients Under 20 months Aged Out No longer eligible based on patient's age to complete this topic Varicella Vaccines Aged Out No longer eligible based on patient's age to complete this topic Procedures Procedure Name Priority Date/Time Associated Diagnosis Comments HEMOGLOBIN A1C Routine 05/31/2025 10:48 AM EDT Diabetes mellitus type 2 with neurological manifestations ([facility] V24, [facility] V28) BASIC METABOLIC PANEL Routine 11/02/2024 3:53 PM EST Diabetes mellitus type 2 with neurological manifestations (CMS/HCC V24, CMS/HCC V28) [facility] SCREENING DIGITAL Routine 05/25/2024 11:50 AM EDT Encounter for screening mammogram for malignant neoplasm of breast HEPATITIS C SCREENING Routine 04/17/2024 HIV SCREENING Routine 04/17/2024 LIPID PANEL Routine 04/17/2024 URINE ALBUMIN CREATININE RATIO Routine 02/28/2024 DIABETES FOOT EXAM Routine 01/19/2024 COLONOSCOPY Routine 06/28/2015 HPV Routine 01/13/2012 from Last 3 Months or Most Recently Relevant to Health Maintenance Results * (ABNORMAL) Hemoglobin A1c (05/31/2025 10:48 AM EDT) Hemoglobin A1C 7.1(H) <6.5 % LAB CHEMISTRY METHOD 05/31/2025 1:[address] [facility] Mean Bld Glu Estim. 157 mg/dL LAB CHEMISTRY METHOD 05/31/2025 1:[address] [facility] Blood Venous blood specimen / Unknown Venipuncture / Unknown 05/31/2025 10:48 AM EDT 05/31/2025 10:48 AM EDT us Lay KEENAN LAB BLOOD ORDERABLES Final Result [facility] [address] [place] [address], [place] [phone] * (ABNORMAL) Basic metabolic panel (11/02/2024 3:53 [...] [facility] Comment:Calculation based on the Chronic Kidney Disease Epidemiology Collaboration (CKD-EPI) equation refit without adjustment for race. BUN/Creatinine Ratio 25.3 LAB CHEMISTRY METHOD 11/02/2024 6:[address] [facility] Calcium 9.2 8.5 - 10.5 mg/dL LAB CHEMISTRY METHOD 11/02/2024 6:[address] [facility] Blood Venous blood specimen / Unknown Venipuncture / Unknown 11/02/2024 3:53 PM EST 11/02/2024 3:53 PM EST us Ioana Carbajal MD LAB BLOOD ORDERABLES Final Resul t [facility] [address] [place] [address], * [facility] SCREENING DIGITAL (05/25/2024 11:50 AM EDT) Anatomical Region Laterality Modality Mammography 05/25/2024 9:50 AM EDT Narrative 05/25/2024 11:50 AM EDT [facility] Diagnostic Imaging Department [address] [place] [address] Patient: ROUSSEAUSASHA /Age/Sex: 1965 - 59 - F Unit#: [id number] [facility]Ordering Site: [facility] Ordering Physician: CLAUDY JUDD MD [facility] Screening Digital - 05/25/24 - 1013 Report Status:Signed EXAM: [facility] Screening Digital EXAM DATE AND TIME: 05/25/2024 10:13 AM HISTORY: Screening. Reduction mammoplasty in 1983. COMPARISON: 02/17/23, 11/09/18, 05/20/15 TECHNIQUE: Bilateral digital breast tomosynthesis was performed in the CC and MLO projections. Computer aided detection with Ovonyx 3D 3.1 was employed. TISSUE DENSITY: a. [...] Date/Time: 05/25/24 1148 Sign date/Time: 05/25/24 1150 Procedure Note Yas Berman MD - 09/13/2024 [facility] Diagnostic Imaging Department [address] [place], [place] [id number] Patient: DORYSASHA /Age/Sex: 1965 - 59 - F Unit#: [id number] Location/Status: [facility] CLI Mnemonic/Ordering Site: [facility] Ordering Physician: CLAUDY JUDD MD [facility] Screening Digital - 05/25/24 - 1013 Report Status:Signed EXAM: [facility] Screening Digital EXAM DATE AND TIME: 05/25/2024 10:13 AM HISTORY: Screening. Reduction mammoplasty in 1983. COMPARISON: 02/17/23, 11/09/18, 05/20/15 TECHNIQUE: Bilateral digital breast tomosynthesis was performed in the CCand MLO projections. Computer aided detection with MySiteApp[employer] 3D 3.1was employed. TISSUE DENSITY: a. The [...] Date/Time: 05/25/24 1148 Sign date/Time: 05/25/24 1150 Result [facility] Claudy Judd MD IMG BI PROCEDURES Final Result * HIV Screening (04/17/2024) [facility] HIV Screening abstracted Result [facility] HEALTH MAINTENANCE Final Result * Hepatitis C Screening (04/17/2024) [facility] Hepatitis C Screening abstracted Result [facility] Provider HEALTH MAINTENANCE Final Result * (ABNORMAL) Lipid panel (04/17/2024) [facility] LDL/HDL Ratio 4 0 - 4 Triglycerides 270(A) 0 - 150 mg/dL Cholesterol 142 0 - 200 mg/dL HDL 38(A) >=40 mg/dL LDL Cholesterol 50 0 - 100 mg/dL Blood Venous blood specimen / Unknown Result [facility] LAB BLOOD ORDERABLES Nati l Result * Urine Albumin Creatinine Ratio (02/28/2024) [facility] Urine Albumin Creatinine Ratio abstracted Historical Provider HEALTH MAINTENANCE Final Result * Diabetes Foot Exam (01/19/2024) [facility] Diabetes: Annual Foot Exam abstracted Result [facility] Provider HEALTH MAINTENANCE Final Result * Colonoscopy (06/28/2015) [facility] Colonoscopy no interpretation , abstracted Anatomical Region Laterality Modality Other [facility] Provider HEALTH MAINTENANCE Final Result * Cervical Cancer Screening: HPV (01/13/2012) [facility] Cervical Cancer Screening: HPV negative, abstracted [facility] Provider HEALTH MAINTENANCE Final Result from Last 3 Months or Most Recently Relevant to Health Maintenance Insurance [facility] [employer] [facility] Care Teams Watchmaking Teacher Relationship Specialty Start Date End Date Claudy Judd MD [address] [phone] PCP - General Internal Medicine 06/13/21
--- NOTE | 2025-06-21 14:31 | A.OFFVIS_ITS ---
Intake Visit Reasons: 3 mnts f/u Allergies sulfacetamide (From Sulfacet-R) Allergy (Severe, Verified 01/22/25 16:05) Unknown sulfur (From Sulfacet-R) Allergy (Severe, Verified 01/22/25 16:05) Unknown amoxicillin (From Augmentin) Allergy (Mild, Verified 01/22/25 16:05) Diarrhea clavulanic acid (From Augmentin) Allergy (Mild, Verified 01/22/25 16:05) Diarrhea clindamycin Allergy (Mild, Verified 01/22/25 16:05) Diarrhea duloxetine (From Cymbalta) Allergy (Mild, Verified 01/22/25 16:05) Hives gabapentin Allergy (Mild, Verified 01/22/25 16:05) Hives pregabalin (From Lyrica) Allergy (Mild, Verified 01/22/25 16:05) Hives sarvela Allergy (Mild, Uncoded 01/22/25 16:05) Unknown HPI Comments Details: 60 yo woman with obesity, IDDM, CAD, anxiety, depression, probably painful diabetic neuropathy causing leg pain TRISTIAN on CPAP, RLS, daytime hypersomnia with difficulty sleeping at night, and headache who used to see Dr. Platt. She was taking multiple meds for these symptoms but they continued. She c/o:?a: Constant headache that fluctuated in location, sometime one side and other time on other side.? b: Urge to keep on moving her legs at night.? c: Pain in legs at night keeping her awake.? d: Inability to sleep at night and sleepy during daytime. She was using CPAP every night. For headaches: She was switched to topiramate from amitryptiline. She was still having headaches. She saw her doctor and was told that she had some inflammation and she was given an eye drop. Headaches were not every day now, but every week. She was not crying as much. For RLS: Ropinorole was helping, it is the only thing that helps. For neuropathy pain: Cyclobenzerine is helping to sleep. [facility] Medical History (Updated 06/21/25 @ 14:36 by Jadiel Silver MD) TRISTIAN on CPAP Painful diabetic neuropathy RLS (restless legs syndrome) Migraine without aura Chronic migraine w/o aura w/o status migrainosus, not intractable Cough Acute respiratory disease Social History Patient Tobacco Use Status: Never used Tobacco Review of Systems Const Details: Difficulty walking. Physical Exam Neuro Other: Mental Status: Alert and oriented to person, place, and time. Normal attention. Normal spontaneous speech, fluency, and comprehension. No obvious issues with mood and memory. Affect is appropriate. Cranial Nerves: CN II: Visual maya full to confrontation, visual acuity intact. CN III, IV, : Pupils equal, round, reactive to light and accommodation. Extraocular movements are normal. CN V: Facial sensation is normal. CN VII: Facial movements symmetrical. CN VIII: Hearing intact to bedside conversation is normal. CN IX, X: Palate elevates symmetrically. CN XI: Shoulder shrug and head turn symmetrical. CN XII: Tongue midline without atrophy or fasciculations. Extrapyramidal: Full facial expressions and blinking. No rigidity. Movements are appropriate with no tremor or abnormality. Speech: Normal; no dysarthria or tremor. Assessment & Plan Assessment & Plan (1) Migraine without aura: Code(s): G43.009 - Migraine without aura, not intractable, without status migrainosus Category: Medical Qualifiers: Status migrainosus presence: without status migrainosus Intractability: intractable Qualified Code(s): G43.019 - Migraine without aura, intractable, without status migrainosus (2) RLS (restless legs syndrome): Code(s): G25.81 - Restless legs syndrome Category: Medical (3) Painful diabetic neuropathy: Code(s): E11.40 - Type 2 diabetes mellitus with diabetic neuropathy, unspecified Category: Medical Plan Impression: a; Migraine w/o aura, chronic, intractable b: Restless leg syndrome c: Painful diabetic neuropathy Recommendation: a: Topiamate 50mg at bedtime for migraine b: Ropinorle 0.25mg one at bedtime for RLS c: Cyclobenzperine 10mg at night for leg pain related to neuropathy. d: MRI brain WO Orders: Orders MR head/brain wo con Today G43.019 - Migraine without aura, intractable, without status migrainosus Coding Level of Care Code Est Pt Level 4 (56395) Diagnoses Intractable migraine without aura and without status migrainosus G43.019 Status migrainosus presence: without status migrainosus Intractability: intractable RLS (restless legs syndrome) G25.81 Painful diabetic neuropathy E11.40
== END 2025-06-21 14:50 | disposition home or self-care (01) ==
LOC: HO.HSM 14:10
PROVIDERS: Visit Provider Psychiatry & Neurology Neurology
DX: G43.019 Migraine without aura, intractable, without status migrainosus (principal); G25.81 Restless legs syndrome; E11.40 Type 2 diabetes mellitus with diabetic neuropathy, unspecified
CPT/HCPCS: 99214

== ENCOUNTER → 2025-06-21 14:09 | Outpatient (BNVA) | payer OTHER, SELFPAY | PROVIDERS: Visit Provider Psychiatry & Neurology Neurology | DX: E11.40 Type 2 diabetes mellitus with diabetic neuropathy, unspecified (principal); G25.81 Restless legs syndrome; G43.719 Chronic migraine without aura, intractable, without status migrainosus | CPT/HCPCS: 99212 ==

== ENCOUNTER 2025-08-21 14:56 | Outpatient (AMB) | payer OTHER, SELFPAY ==
--- NOTE | 2025-08-21 15:05 | A.OFFVIS_ITS ---
Intake Visit Reasons: After MRI Allergies sulfacetamide (From Sulfacet-R) Allergy (Severe, Verified 01/22/25 16:05) Unknown sulfur (From Sulfacet-R) Allergy (Severe, Verified 01/22/25 16:05) Unknown amoxicillin (From Augmentin) Allergy (Mild, Verified 01/22/25 16:05) Diarrhea clavulanic acid (From Augmentin) Allergy (Mild, Verified 01/22/25 16:05) Diarrhea clindamycin Allergy (Mild, Verified 01/22/25 16:05) Diarrhea duloxetine (From Cymbalta) Allergy (Mild, Verified 01/22/25 16:05) Hives gabapentin Allergy (Mild, Verified 01/22/25 16:05) Hives pregabalin (From Lyrica) Allergy (Mild, Verified 01/22/25 16:05) Hives sarvela Allergy (Mild, Uncoded 01/22/25 16:05) Unknown HPI Comments Details: 60 years old woman with migraine without aura, restless legs syndrome, and painful diabetic neuropathy. She is presenting with headaches, describing variable pain affecting different head regions, occasionally inducing a squeezing sensation. Some episodes have led to vision impairment. The patient highlights that the headache severity and frequency have increased over time. An MRI conducted, with results indicating no abnormal findings relevant to her symptoms. Current management includes a new prescription of Topamax for migraine control, and she experiences ocular dryness, for which artificial tears have been prescribed without significant relief. [facility] Medical History (Updated 08/21/25 @ 15:10 by Jadiel Silver MD) TRISTIAN on CPAP Painful diabetic neuropathy RLS (restless legs syndrome) Migraine without aura Chronic migraine w/o aura w/o status migrainosus, not intractable Cough Acute respiratory disease Social History Patient Tobacco Use Status: Never used Tobacco Review of Systems Const Details: - Neurologic: Reports headaches with vision disturbances. - Ophthalmologic: Reports significant ocular dryness. - Musculoskeletal: Takes ropinirole for leg symptoms at night. Physical Exam Neuro Other: Mental Status: Alert and oriented to person, place, and time. Normal attention. Normal spontaneous speech, fluency, and comprehension. No obvious issues with mood and memory. Affect is appropriate. Cranial Nerves: CN II: Visual maya full to confrontation, visual acuity intact. CN III, IV, : Pupils equal, round, reactive to light and accommodation. Extraocular movements are normal. CN V: Facial sensation is normal. CN VII: Facial movements symmetrical. CN VIII: Hearing intact to bedside conversation is normal. CN IX, X: Palate elevates symmetrically. CN XI: Shoulder shrug and head turn symmetrical. CN XII: Tongue midline without atrophy or fasciculations. Extrapyramidal: Full facial expressions and blinking. No rigidity. Movements are appropriate with no tremor or abnormality. Speech: Normal; no dysarthria or tremor. Assessment & Plan Assessment & Plan (1) Migraine without aura: Comment: MRI brain WO at [facility] in Jun 2025: Ventricles are mildly prominent Code(s): G43.009 - Migraine without aura, not intractable, without status migrainosus Category: Medical Qualifiers: Status migrainosus presence: without status migrainosus Intractability: intractable Qualified Code(s): G43.019 - Migraine without aura, intractable, without status migrainosus (2) RLS (restless legs syndrome): Code(s): G25.81 - Restless legs syndrome Category: Medical (3) Painful diabetic neuropathy: Code(s): E11.40 - Type 2 diabetes mellitus with diabetic neuropathy, unspecified Category: Medical Plan Impression: Migraine without aura Recommendations: Topiramate 50 mg once or twice a day Orders: Orders Erythrocyte Sedimentation Rate Today G43.019 - Migraine without aura, intractable, without status migrainosus Medications: Refilled topiramate 50 mg PO DAILY 90 tabs 0RF 90 days Coding Level of Care Code Est Pt Level 4 (22181) Diagnoses Intractable migraine without aura and without status migrainosus G43.019 Status migrainosus presence: without status migrainosus Intractability: intractable RLS (restless legs syndrome) G25.81 Painful diabetic neuropathy E11.40
--- OUTSIDE RECORDS SUMMARY | 2025-08-21 17:59 | XMS_ITS | Encounter Summary ---
Author Organization [facility] Address [address] [place] [address] Care Team Providers Care Correctional Manager Name Role Phone Gail Judd Primary Care Provider Encounter Details Date Type Department Care Team (Late st Contact Info) Description 04/14/2023 Ophthalmology Data Conversion [facility] Ophthalmology [address] [place] [phone] Jennifer Simmons MD [address] [place] [phone] Social History Tobacco Use Types Packs/Day Years [...] on filedocumented in this encounter Care Teams Correctional Manager Relationship Specialty Start Date End Date Gail Judd [address] [place] [id number] PCP - General Internal Medicine 09/13/23 documented as of this encounter
--- OUTSIDE RECORDS SUMMARY | 2025-08-21 17:59 | XMS_ITS | Clinical Summary ---
Author Organization [facility] Address [address] [place] [address] Care Team Providers Care New Accounts Banking Representative Name Role Phone Gail Judd Primary Care Provider [phone] Active Problems Problem Noted Date Diagnosed Date Glaucoma suspect of both eyes 09/14/2023 Social History Tobacco Use Types Packs/Day Years Used Date Smoking Tobacco: Never Assessed Comments Unknown Sex and Gender Information Value Date Recorded Sex Assigned at Not on file Legal Sex Female 10:05 AM EDT Gender Identity Not on file Sexual Orientation Not on file Plan of Treatment Health Maintenance Due Date Last Done Comments [...] (2 - Td or Tdap) 05/14/2021 05/14/2011 Alcohol/Substance Use Screening 11/29/2024 Depression Screening and Follow-Up 11/29/2024 Social Drivers of Health Emmie ual Screening 11/29/2024 COVID-19 Vaccine (3 - 2024-2 6 season) 2025 04/16/2021, 03/26/2021 Influenza Vaccine (#1) 2025 9, 01/19/2019, 10/26/2017, Additional history exists RSV Vaccine (60+ years old a nd patients) (1 - 1-dose 75+ series) 2042 Insurance [employer] Care Teams New Accounts Banking Representative Relationship Specialty Start Date End Date Gail Judd [address] [place] [address] PCP - General Internal Medicine 09/13/23
--- OUTSIDE RECORDS SUMMARY | 2025-08-21 18:00 | XMS_ITS | Encounter Summary ---
Author Organization [facility] Address [address] [place] [address] Care Team Providers Care Formula Clerk Name Role Phone Gail Judd Primary Care Provider [phone] Encounter Details Date Type Department Care Team (Late st Contact Info) Description 04/14/2023 Ophthalmology Data Conversion [facility] Ophthalmology [address] [place] [phone] Jennifer Simmons MD [address] [place] [phone] Social History Tobacco Use Types Packs/Day Years [...] on filedocumented in this encounter Care Teams Formula Clerk Relationship Specialty Start Date End Date Gail Judd [address] [place] [id number] PCP - General Internal Medicine 09/13/23 documented as of this encounter
--- OUTSIDE RECORDS SUMMARY | 2025-08-21 18:00 | XMS_ITS | Clinical Summary ---
Author Organization Patient Business Ser [facility] Address [address] [place] [address] Care Team Providers Care Senior Linux Unix Administrator Name Role Phone Claudy Judd MD Primary Care Provider [phone] Allergies Active Allergy Reactions Criticality Noted Date [...] 1 % lotion Apply 1 g topically. 4 Active meclizine (ANTIVERT) 12.5 mg tablet Take 1 tablet (12.5 mg total) by mouth. 4 Active ondansetron (ZOFRAN) 4 mg tablet Take 1 tablet (4 mg total) by mouth. 4 Active albuterol HFA (PROAIR HFA ; PROVENTIL HFA ; VENTOLIN HFA) 90 mcg/actuation inhaler Inhale 2 puffs by mouth. 3 Active albuterol 2.5 mg /3 mL (0.083 %) nebulizer solution Inhale 3 mL (2.5 mg total) by mouth. 3 Active fexofenadine (JAKUB) 180 mg tablet Take 1 tablet (180 mg total) by mouth 1 (one) time each day. 3 Active venlafaxine (EFFEXOR) 37.5 mg tablet Take 1 tablet (37.5 mg total) by mouth 1 (one) time each day. Active flash glucose scanning reader (FREESTYLE LACY 2 READER MISC) 1 Device by Not Applicable route. 3 Active venlafaxine XR (EFFEXOR-XR) 75 mg 24 hr capsule Take 1 capsule (75 mg total) by mouth 1 (one) time each day. 2 Active hydrOXYzine pamoate (VISTARIL) 25 mg capsule Take 1 capsule (25 mg total) by mouth 1 (one) time each day. 2 Active methenamine hippurate (HIPREX) 1 gram tablet TK 1 T PO BID 9 Active rOPINIRole (REQUIP) 0.25 mg tablet Take 1 tablet (0.25 mg total) by mouth. 7 Active topiramate (TOPAMAX) 50 mg tablet TAKE 1 TABLET BY MOUTH DAILY FOR 30 DAYS. 30 tablet 1 5 Active estradioL (ESTRACE) 0.01 % (0.1 mg/gram) vaginal creamIndication s:Vaginal dryness Insert 4 g into the vagina 1 (one) time each day. 42.5 g 11 5 Active flash glucose sensor (FreeStyle Lacy 2 Sensor) kit Apply 1 EA topically every 14 (fourteen) days. 6 each 3 5 Active ketoconazole (NIZORAL) 2 % cream Apply topically 2 (two) times a day. 30 g 2 5 Active loratadine (CLARITIN) 10 mg tablet Take 1 tablet (10 mg total) by mouth 1 (one) time each day. 90 tablet 2 5 Active pen needle, diabetic 32 gauge x 532 needle 1 each by Not Applicable route 2 (two) times a day. 100 each 3 5 Active montelukast (SINGULAIR) 10 mg tablet Take 1 tablet (10 mg total) by mouth at bedtime. at bedtime. 30 tablet 2 5 Active ferrous sulfate 325 mg (65 mg iron) EC tablet TAKE 1 TABLET BY MOUTH DAILY. 30 tablet 4 5 Active oxymetazoline (Afrin, oxymetazoline,) 0.05 % nasal sprayIndication s:Nasal congestion Administer 2 sprays into each nostril 2 (two) times a day for 3 days. 30 mL 5 Active isosorbide mononitrate (IMDUR) 60 mg 24 hr tablet TAKE 1 TABLET BY MOUTH DAILY. 90 tablet 1 5 Active nystatin (MYCOSTATIN) 100,000 unit/gram powder Apply topically 3 (three) times a day. 90 g 10 5 Active rosuvastatin (CRESTOR) 5 mg tablet TAKE 1 TABLET BY MOUTH DAILY. 90 tablet 1 5 Active diclofenac (VOLTAREN) 1 % topical gel APPLY 1 DOSE TOPICALLY 2 TIMES DAILY. 100 g 4 5 Active furosemide (LASIX) 20 mg tabletIndicatio ns:Water retention TAKE 1 TABLET (20 MG TOTAL) BY MOUTH 1 (ONE) TIME EACH DAY. 30 tablet 1 5 Active Baqsimi 3 mg/actuation nasal spray USE 3 MG BY NASAL ROUTE NEEDED (LOW GLUCOSE). 2 each 5 Active aspirin 81 mg EC tablet Take 1 tablet (81 mg total) by mouth 1 (one) time each day. 90 tablet 1 5 Active True Comfort Safety Pen Needle 32 gauge x 532 needle USE 1 DEVICE BY DOES NOT APPLY ROUTE 2 TIMES DAILY. 100 each 3 5 Active fluticasone furoate-vilante roL (Breo Ellipta) 200-25 mcg/dose inhaler Inhale 1 puff by mouth 1 (one) time each day. 1 each 11 5 026 Active Pure Comfort Safety Lancets 30 gauge misc USE DIRECTED TWICE DAILY 100 each 5 Active esomeprazole (NexIUM) [address] capsule Take 1 capsule (40 mg total) by mouth 1 (one) time each day before breakfast. Do not open capsule. 90 each 5 025 Active sucralfate (CARAFATE) 1 gram tablet Take 1 tablet (1 g total) by mouth 4 (four) times a day (before meals and nightly). Take 1 hour before meals and at bedtime 120 each 2 5 025 Active simethicone (MYLICON) 80 mg chewable tablet Chew 1 tablet (80 mg total) every 6 (six) hours if needed for flatulence. 120 tablet 2 5 025 Active insulin glargine (Lantus Solostar U-100 Insulin) 100 unit/mL (3 mL) injection pen 48 units SC twice a day 5 Active insulin lispro (HumaLOG KwikPen) 100 unit/mL injection pen INJECT THREE TIMES DAILY BEFORE MEALS PER SCALE: 100-149: 30U, 150-199:32U, 200-249:34U, 250-299:36U, 300-349:38U, 350-399:40U, >/=400:42U AND CALL MD, plus 6 units for snack 5 Active blood sugar diagnostic (FreeStyle Lite Strips) test strip USE TO TEST BLOOD SUGARS 3 TIMES DAILY 100 each 1 5 Active ibuprofen (ADVIL,MOTRIN) 600 mg tablet Take 1 tablet (600 mg total) by mouth every 8 (eight) hours if needed for moderate pain. for pain 60 tablet 1 5 Active amitriptyline (ELAVIL) 25 mg tablet 5 Active ARIPiprazole (ABILIFY) 2 mg tablet 5 Active cyclobenzaprine (FLEXERIL) 10 mg tablet Take 1 tablet (10 mg total) by mouth 3 (three) times a day if needed for muscle spasms. for muscle spasms 90 tablet 1 5 Active cyclobenzaprine (FLEXERIL) 10 mg tablet TAKE 1 TABLET BY MOUTH 3 TIMES DAILY NEEDED FOR MUSCLE SPASMS. 90 tablet 1 5 025 Discontinu ed(Reorder ) doxycycline (VIBRAMYCIN) 100 mg capsule Take 1 capsule (100 mg total) by mouth 2 (two) times a day for 10 days. Take with at least 8 ounces (large glass) of water, do not lie down for 30 minutes after. Administer 2 hours before or after multivitamins, antacids, or other products containing polyvalent cations (i.e., calcium, iron, magnesium, selenium, zinc). 20 each 5 025 Active Problems Problem Noted Date Diagnosed Date [...] therapy. Venous insufficiency of lower extremity 10/15/20 21 Overview (09/22/2024): Last Assessment & Plan: The patient has a history of lower extremity venous insufficiency. For this, the patient has been seen by the [facility]. The patient is supposed [...] Seen by neurologist Dr. Arteaga, following with forest supervisor Dr. Katiuska Chapman at [facility] 05/05/2021 Overview (09/22/2024): Last Assessment & Plan: [...] with Dr. Sanon who is a cardiac sustainability specialist who interpreted the study. The myocardial [...] Encounters Date Type Department Care Team Description 08/21/2025 Telephone Gastroenterology [address] [phone] Ernestina Nichols NP 08/13/2025 Telephone Endocrinology [address] [place] [place] [address] Lay Rawls PA 08/08/2025 3:15 PM EDT Office Visit Internal Medicine [address] [phone] Claudy Judd MD Cellulitis of toe of right foot (Primary Dx); Need for tetanus, diphtheria, and acellular pertussis (Tdap) vaccine; Chronic nonintractable headache, unspecified headache type 08/02/2025 Telephone Internal Medicine - [address] [phone] Claudy Judd MD 07/27/2025 8:28 AM EDT Anesthesia Event [facility] Endoscopy [address] [place] [phone] Toño Burleson MD Couture, Alison, CRNA 07/27/2025 7:07 AM EDT - 07/27/2025 11:59 PM EDT Hospital Encounter [facility] Endoscopy [address] [place] [phone] Sandra Wade DO Epigastric abdominal pain; Gastroesophageal reflux disease, unspecified whether esophagitis present Discharge Disposition: Home or Self Care 07/26/2025 Telephone Gastroenterology - [place] [address] [phone] Trev Perez MD 07/25/2025 10:04 AM EDT Anesthesia Event [facility] Endoscopy [address] [place] [phone] Himanshu Burton DO 07/25/2025 9:05 AM EDT - 07/25/2025 11:59 PM EDT Hospital Encounter [facility] Endoscopy [address] [place] [phone] Sandra Wade DO Elliott, Barbara J, CRNA Epigastric abdominal pain Discharge Disposition: Home or Self Care 07/25/2025 Telephone Gastroenterology - [place] [address] [phone] Bernadette Dao MA 07/25/2025 Telephone Endocrinology - [place] [address] [place], [place] [phone] Lay Rawls PA 07/09/2025 Telephone Endocrinology - [place] [address] [place] [phone] Lay Rawls PA 07/06/2025 1:20 PM EDT Consult Gastroenterology - [address] [phone] Ernestina Nichols, BLOSSOM Epigastric abdominal pain (Primary Dx); Gastroesophageal reflux disease, unspecified whether esophagitis present; Colonoscopy refused 07/06/2025 Telephone Gastroenterology - [address] [phone] Ernestina Nichols NP 07/06/2025 Telephone Internal Medicine - [address] [place] [phone] Claudy Judd MD 07/05/2025 1:45 PM EDT Office Visit Bariatric Surgery - [address] [place] [phone] Sadi Read MD Class 3 severe obesity due to excess calories with body mass index (BMI) of 40.0 to 44.9 in adult, unspecified whether serious comorbidity present (CMS/HCC V24, CMS/HCC V28) (Primary Dx) 06/18/2025 2:30 PM EDT Office Visit Pulmonology - [address] [place] [address] Ioana Carbajal MD Mild persistent asthma, unspecified whether complicated (Primary Dx); Obstructive sleep apnea 06/06/2025 2:00 PM EDT [place]medicine [place] [facility] [place] [address] [place] [phone] Lay Rawls PA Diabetes mellitus type 2 with neurological manifestations ([facility] V24, [facility] V28) (Primary Dx); Hypothyroidism, unspecified type from Last 3 Months Immunizations Name Administration Dates Next Due Influenza Quadravalent, MDCK , 0.5ml, preservative free (Flucelvax) 6mo and older 10/25/2019,01/19/2019 Influenza Quadravalent, MDCK , 0.5ml, with preservative (Flucelvax) 6mo and older 10/26/2017 Influenza trivalent, 0.5mL, preservative free (Fluarix; FluLaval; Fluzone) ages 6mo and older (Afluria) 3 years and older 08/26/2015,08/05/2010,08/20/2009,11/02 FDTEK SARS-CoV-2 COVID-19, mRNA, LNP-S, preservative free 04/16/2021,03/26/2021 Pneumococcal polysaccharide 23 valent (Pneumovax 23) 2yo and older 09/05/2012 Tdap Tetanus diptheria acell ular pertussis (Boostrix; Adacel) 7yo and older 08/08/2025,05/14/2011 Surgical History Surgery Date Site/Laterality Comments OTHER SURGICAL HISTORY 1965 PROCEDURE: MI FTH/GF FR W/DIR CLSR F/C/C/M/N/AX/G/H/F 20SQCM/< OTHER SURGICAL HISTORY 1965 PROCEDURE: MI FTH/GFT FR W/DIR CLSR TRNK EA ADDL 20 SQ CM HYSTERECTOMY PROCEDURE: HISTORICAL HYSTERECTOMY SECTION x5 PROCEDURE: HISTORICAL DELIVERY CHOLECYSTECTOMY 2004 PROCEDURE: LAPAROSCOPY, CHOLECYSTECTOMY ESOPHAGOGASTRODUODENOSCOPY 09/08/2012 PROCEDURE: MI EGD TRANSORAL BIOPSY SINGLE/MULTIPLE; COMMENT: erosive gastritis: [...] elsewhere classified; COMMENT: followed by psychiatrist at [facility] in [place], [place] Lumbago 08/20/2009 DX:Lumbago; COMM ENT: [facility] Asthma 11/07/2009 DX:Asthma; COMME NT: Followed by [facility] at [place], [place], [employer] Family history of breast cancer DX:Family history of breast cancer; COMMENT: pt BRCA neg 11/16/2013-low risk Family history of malignant neoplasm of gastrointestinal tract 05/22/2014 DX:Family history of maligna nt neoplasm of gastrointestinal tract; COMMENT: Second degree relatives x2 with colon cancer. Genetic testing for Lindsey syndrome negative in 2012. Negative colonoscopy 08/22/2004 at the [facility]. Colonoscopy indicated every 10 years. Chronic headaches 09/30/2012 DX:Chronic hea daches; COMMENT: Saw Dr. Arteaga Chronic pain 09/30/2012 DX:Chronic pain Hypothyroid 03/10/2011 DX:Hypothyroid Impaired fasting glucose 08/12/2011 DX:Impa ired fasting glucose Kidney stones 01/19/2011 DX:Kidney stones ; COMMENT: [facility] urology RLS (restless legs syndrome) 01/18/2014 DX: RLS (restless legs syndrome) Diabetes type 2, uncontrolled DX :Diabetes type 2, uncontrolled Recurrent syncope DX:Recurrent s yncope; COMMENT: Seen by neurologist Dr. Arteaga, following with forest supervisor Dr. Katiuska Chapman at [facility] cardiology Family History Medical History Relation Name [...] drink = 0.6 oz pur e alcohol) Interpersonal Safety Answer Date Record ed Physical Abuse 07/27/2025 Verbal Abuse 07/27/2025 Comments Unknown Sex and Gender Information Value Date Recorded Sex Assigned at Female 09/10/2022 2:47 PM EDT Legal Sex Female 2:23 PM EDT Gender Identity Female 09/10/2022 2:47 PM EDT Sexual Orientation Straight 09/10/2022 2: 47 PM EDT Obstetrics History Last Filed Vital Signs Vital Sign Reading Time Taken Comments Blood Pressure 128/78 08/08/2025 3:00 PM EDT Pulse 86 08/08/2025 3:00 PM EDT Temperature 36.6 C (97.9 F) 08/08/2025 3:00 PM EDT Respiratory Rate 16 07/27/2025 9:05 AM EDT Oxygen Saturation 97% 08/08/2025 3:00 PM EDT Inhaled Oxygen Concentration - - Weight 122 kg (268 lb 3.2 oz) 08/08/2025 3:00 PM EDT Height 170.2 cm (5' 7 ) 08/08/2025 3:00 PM EDT Body Mass Index 42.01 08/08/2025 3:00 PM EDT Plan of Treatment Upcoming Encounters Date Type Department Care Team (Late st Contact Info) Description 08/23/2025 1:30 PM EDT Office Visit Internal Medicine - [place] 175 [facility] [address] [place] [phone] Claudy Judd MD 175 [facility] 200 [place] [phone] 09/05/2025 2:15 PM EDT Office Visit Endocrinology - [address] [phone] Lay Rawls PA [address] [place] [address] 09/06/2025 2:00 PM EDT Nutrition Internal Medicine - [place] 175 [facility] [address] [place] [phone] Delia Holt, RD [address] [place] [phone] 09/13/2025 1:45 PM EDT Office Visit Orthopedic Surgery [facility] 250 [address] [facility] [address] [place] [phone] Jero Steven, CRUZ 175 [facility] [address] [place], [place] [phone] 09/27/2025 2:40 PM EDT Office Visit [facility] [address] [place] [phone] Nataliya Garrett NP [address] [place] [address] [facility] [address] [place] [phone] 10/11/2025 9:15 AM EST Office Visit Bariatric Surgery [facility] 175 [facility] [address] [place] [phone] Sadi Read MD [address] [place] [address] 12/12/2025 1:00 PM EST Office Visit Gastroenterology - [place] [address] [phone] Simone Ernestina, INVESTIGATION DIVISION SERGEANT [address] [address] 12/19/2025 1:15 PM EST Office Visit Pulmonology - [place] [address] [phone] Ioana Carbajal MD [address] [address] Health Maintenance Due Date Last Done Comments Hepatitis B Vaccines (1 of 3 - 19+ 3-dose series) 1986 Pneumococcal Vaccine: 50+ Years (2 of 2 - PCV) 09/05/2013 09/05/2012, 10/30/2009 Cervical Cancer Screening: Pap Smear 01/13/2015 01/13/2012, 01/13/2012, 01/13/2012 Zoster Vaccines (1 of 2) 2017 Colorectal Cancer Screening: Colonoscopy 09/10/2022 06/28/2015, 06/28/2015 Diabetes: Annual Retina Eye Exam 04/12/2024 04/12/2023 Social Influencers of Health Screening 07/21/2024 07/21/2023 Diabetes: Annual Foot Exam 01/19/2025 01/19/2024, Diabetes: Annual Urine Albumin-Creatinine Ratio (uACR) 02/27/2025 02/28/2024, 02/28/2024 COVID-19 Vaccine ( season) 2025 04/16/2021, 03/26/2021 Influenza Vaccine (#1) 2025 9, 01/19/2019, 10/26/2017, Additional history exists Diabetes: Blood Sugar Control Test (HGBA1C) 02/10/2026 08/13/2025, 05/31/2025, 11/02/2024, Additional history exists Breast Cancer Screening 05/30/2026 05/30/20, 05/25/2024, 02/17/2023, Additional history exists Diabetes: Annual GFR (Glomerular Filtration Rate) 08/13/2026 08/13/2025, 11/02/2024, 04/17/2024, Additional history exists Cholesterol Screening (Lipid Panel) 08/13/2030 08/13/2025, 04/17/2024, 04/17/2024 DTaP,Tdap,and Td Vaccines (3 - Td or Tdap) 08/08/2035 08/08/2025, 05/14/2011 RSV Immunization Adult Patients (1 - 1-dose 75+ series) 2042 HIV Screening Completed 04/17/2024, 04/17/2024 Hepatitis C [...] Procedure Name Priority Date/Time Associated Diagnosis Comments TRIIODOTHYRONINE FREE Routine 08/13/2025 8:04 AM EDT Hypothyroidism, unspecified type FREE THYROXINE WITH REFLEX TO FREE TRIIODOTHYRONINE Routine 08/13/2025 8:04 AM EDT Hypothyroidism, unspecified type HEMOGLOBIN A1C Routine 08/13/2025 8:04 AM EDT Diabetes mellitus type 2 with neurological manifestations (CMS/HCC V24, CMS/HCC V28) BASIC METABOLIC PANEL Routine 08/13/2025 8:04 AM EDT Diabetes mellitus type 2 with neurological manifestations (CMS/HCC V24, CMS/HCC V28) LIPID PANEL WITH REFLEX TO DIRECT LDL Routine 08/13/2025 8:04 AM EDT Diabetes mellitus type 2 with neurological manifestations (CMS/HCC V24, CMS/HCC V28) THYROID STIMULATING HORMONE WITH REFLEX TO FREE T4 AND FREE T3 Routine 08/13/2025 8:04 AM EDT Hypothyroidism, unspecified type EGD Routine 07/27/2025 8:44 AM EDT Epigastric abdominal pain Gastroesophageal reflux disease, unspecified whether esophagitis present TISSUE EXAM Routine 07/27/2025 8:35 AM EDT Epigastric abdominal pain Gastroesophageal reflux disease, unspecified whether esophagitis present EGD Routine 07/25/2025 10:27 AM EDT Epigastric abdominal pain HEMOGLOBIN A1C Routine 05/31/2025 10:48 AM EDT Diabetes mellitus type 2 with neurological manifestations (CMS/HCC V24, CMS/HCC V28) [facility] SCREENING DIGITAL Routine 05/25/2024 11:50 AM EDT Encounter for screening mammogram for malignant neoplasm of breast HEPATITIS C SCREENING Routine 04/17/2024 HIV SCREENING Routine 04/17/2024 URINE ALBUMIN CREATININE RATIO Routine 02/28/2024 DIABETES FOOT EXAM Routine 01/19/2024 COLONOSCOPY Routine 06/28/2015 HPV Routine 01/13/2012 from Last 3 Months or Most Recently Relevant to Health Maintenance Results * (ABNORMAL) Thyroid stimulating hormone with reflex to free t4 and free t3 (08/13/2025 8:04 AM EDT) TSH 4.99(H) 0.40 - 4.00 mcIU/mL LAB CHEMISTRY METHOD 08/13/2025 11:44 AM EDT [facility] Blood Venous blood specimen / Unknown Venipuncture / Unknown 08/13/2025 8:04 AM EDT 08/13/2025 8:04 AM EDT Lay KEENAN LAB BLOOD ORDERABLES Final Result Performing Organization Address City/[facility]/ZIP Co de Phone Number [facility] [address] [place] [address], [place] [phone] * Free thyroxine with reflex to free triiodothyronine (08/13/2025 8:04 AM EDT) [facility] Free T4 0.84 0.70 - 1.80 ng/dL LAB CHEMISTRY METHOD 08/13/2025 12:40 PM EDT [facility] Blood Venous blood specimen / Unknown Venipuncture / Unknown 08/13/2025 8:04 AM EDT 08/13/2025 8:04 AM EDT Lay KEENAN LAB BLOOD ORDERABLES Final Result [facility] [address] [place] [address], [place] [phone] * (ABNORMAL) Lipid panel with reflex to direct LDL (08/13/2025 8:04 AM EDT) [facility] Cholesterol 126 0 - 200 mg/dL LAB CHEMISTRY METHOD 08/13/2025 10:48 AM EDT [facility] Triglycerides 294(H) 0 - 150 mg/dL LAB CHEMISTRY METHOD 08/13/2025 10:48 AM EDT [facility] HDL 38(L) >=40 mg/dL LAB CHEMISTRY METHOD 08/13/2025 10:48 AM EDT [facility] LDL Calculated 29 0 - 100 mg/dL LAB CHEMISTRY METHOD 08/13/2025 10:48 AM EDT [facility] Comment:Estimated LDL Calcul ated using equation: Total cholesterol - HDL cholesterol - (Triglycerides/5) VLDL Cholesterol Mauro 58.8 mg/dL LAB CHEMISTRY METHOD 08/13/2025 10:48 AM EDT [facility] Non HDL Chol. (LDL+VLDL) 88 <145 mg/dL LAB CHEMISTRY METHOD 08/13/2025 10:48 AM EDT [facility] Chol/HDL Ratio 3.3 0.0 - 4.4 LAB CHEMISTRY METHOD 08/13/2025 10:48 AM EDT [facility] Blood Venous blood specimen / Unknown Venipuncture / Unknown 08/13/2025 8:04 AM EDT 08/13/2025 8:04 AM EDT us Lay KEENAN LAB BLOOD ORDERABLES Final Result [facility] [address] [place] [address], [place] [phone] * Triiodothyronine free (08/13/2025 8:04 AM EDT) T3, Free 313 230 - 420 pcg/dL LAB CHEMISTRY METHOD 08/13/2025 1:43 PM EDT [facility] Blood Venous blood specimen / Unknown Venipuncture / Unknown 08/13/2025 8:04 AM EDT 08/13/2025 8:04 AM EDT us Lay KEENAN LAB BLOOD ORDERABLES Final Result [facility] [address] [place] [address], [place] [phone] * (ABNORMAL) Hemoglobin A1c (08/13/2025 8:04 AM EDT) Only the most recent of2 resultswithin the time period is included. [facility] Hemoglobin A1C 7.7(H) <6.5 % LAB CHEMISTRY METHOD 08/13/2025 11:26 AM EDT [facility] Mean Bld Glu Estim. 174 mg/dL LAB CHEMISTRY METHOD 08/13/2025 11:26 AM T [facility] Blood Venous blood specimen / Unknown Venipuncture / Unknown 08/13/2025 8:04 AM EDT 08/13/2025 8:04 AM EDT Lay KEENAN LAB BLOOD ORDERABLES Final Result [facility] [address] [place] [address], * (ABNORMAL) Basic metabolic panel (08/13/2025 8:04 AM EDT) [facility] Sodium 136 133 - 145 mmol/L LAB CHEMISTRY METHOD 08/13/2025 10:45 AM [facility] Potassium 4.0 3.5 - 5.5 mmol/L LAB CHEMISTRY METHOD 08/13/2025 10:45 AM [facility] Chloride 101 96 - 110 mmol/L LAB CHEMISTRY METHOD 08/13/2025 10:45 AM T [facility] CO2 27 21 - 32 mmol/L LAB CHEMISTRY METHOD 08/13/2025 10:45 AM [facility] Anion Gap 8 3 - 11 LAB CHEMISTRY METHOD 08/13/2025 10:45 AM [facility] Glucose 129(H) 70 - 100 mg/dL LAB CHEMISTRY METHOD 08/13/2025 10:45 AM [facility] BUN 24 5 - 25 mg/dL LAB CHEMISTRY METHOD 08/13/2025 10:45 AM EDT [facility] Creatinine 0.83 0.50 - 1.10 mg/dL LAB CHEMISTRY METHOD 08/13/2025 10:45 AM EDT [facility] eGFR 82 >=60 mL/min/1. 73m2 LAB CHEMISTRY METHOD 08/13/2025 10:45 AM EDT [facility] Comment:Calculation based on the Chronic Kidney Disease Epidemiology Collaboration (CKD-EPI) equation refit without adjustment for race. BUN/Creatinine Ratio 28.9 LAB CHEMISTRY METHOD 08/13/2025 10:45 AM EDT [facility] Calcium 9.2 8.5 - 10.5 mg/dL LAB CHEMISTRY METHOD 08/13/2025 10:45 AM EDT [facility] Blood Venous blood specimen / Unknown Venipuncture / Unknown 08/13/2025 8:04 AM EDT 08/13/2025 8:04 AM EDT us Lay KEENAN LAB BLOOD ORDERABLES Final Result [facility] [address] [place] [address], * EGD Anesthesia - [facility]; [facility] ENDOSCOPY (07/27/2025 8:44 AM EDT) Only the most recent of2 resultswithin the time period is included. Anatomical Region Laterality Modality Endoscopy 07/27/2025 8:26 AM EDT Impressions 07/27/2025 8:44 AM EDT - Normal examined duodenum. - Erythematous mucosa in the stomach. Biopsied. - Gastroparesis. Recommendation: - Discharge patient to home. - Gastroparesis diet. - Continue present medications. - Await pathology results. Narrative 07/27/2025 8:44 AM EDT [facility] GI Patient Name: Sasha Rousseau Procedure Date: 07/27/2025 8:26 AM Date of : 1965 Age: 60 Gender: Female Note Status: Finalized Attending MD: Sandra Wade DO, [id number] Procedure Date No Time: 07/27/2025 Procedure: Upper GI endoscopy Indications: Epigastric abdominal pain, Suspected gastroparesis Providers: Sandra Wade DO Referring MD: Sandra Wade DO Medicines: Monitored Anesthesia Care Complications: No immediate complications. Estimated blood loss: Minimal. Estimated Blood Loss: Estimated blood loss was minimal. Procedure: Pre-Anesthesia Assessment: - - Prior to the procedure, a History and Physical was performed, and patient medications and allergies were reviewed. The patient is competent. The risks and benefits of the procedure and the sedation options and risks were discussed with the patient. All questions were answered and informed consent was obtained. Patient identification and proposed procedure were verified by the physician, the nurse, the anesthesiologist, the doctor osteopathic and the donor support technician in the pre-procedure area in the endoscopy suite. Mental Status Examination: alert and oriented. Airway Examination: normal oropharyngeal airway and neck mobility. Respiratory Examination: clear to auscultation. CV Examination: normal. Prophylactic Antibiotics: The patient does not require prophylactic antibiotics. Prior Anticoagulants: The patient has taken no anticoagulant or antiplatelet agents. ASA Grade Assessment: II - A patient with mild systemic disease. After reviewing the risks and benefits, the patient was deemed in satisfactory condition to undergo the procedure. The anesthesia plan was to use monitored anesthesia care (MAC). Immediately prior to administration of medications, the patient was re-assessed for adequacy to receive sedatives. The heart rate, respiratory rate, oxygen saturations, blood pressure, adequacy of pulmonary ventilation, and response to care were monitored throughout the procedure. The physical status of the patient was re-assessed after the procedure. After obtaining informed consent, the endoscope was passed under direct vision. Throughout the procedure, the patient's blood pressure, pulse, and oxygen saturations were monitored continuously. The Endoscope was introduced through the mouth, and advanced to the third part of duodenum. The upper GI endoscopy was accomplished without difficulty. The patient tolerated the procedure well. Findings: The examined duodenum was normal. Diffuse moderately erythematous mucosa without bleeding was found in the stomach. Biopsies were taken with a cold forceps for histology. Estimated blood loss was minimal. The Z-line was irregular and was found 38 cm from the incisors. Biopsies were taken with a cold forceps for histology. Estimated blood loss was minimal. Suspect gastroparesis due to absence of peristalsis. Procedure Code(s): --- Professional --- 23399, Esophagogastroduodenoscopy, flexible, transoral; with biopsy, single or multiple Diagnosis Code(s): --- Professional --- K31.89, Other diseases of stomach and duodenum K31.84, Gastroparesis R10.13, Epigastric pain CPT copyright 2020 [employer]. All rights reserved. The codes documented in this report are preliminary and upon braille coder review may be revised to meet current compliance requirements. SANDRA Wade DO 07/27/2025 8:44:35 AM This report has been signed electronically.Sandra Wade DO Number of Addenda: 0 Note Initiated On: 07/27/2025 8:26 AM Scope In: Scope Out: Endoscopy Department at [facility] - [address] [place] [id number] Procedure Note Sandra Wade DO - 07/27/2025 [facility] GI Patient Name: Sasha Rousseau Procedure Date: 07/27/2025 8:26 AM Date of : 1965 Age: 60 Gender: Female Note Status: Finalized Attending MD: Sandra Wade DO, [id number] Procedure Date No Time: 07/27/2025 Procedure: Upper GI endoscopy Indications: Epigastric abdominal pain, Suspectedgastroparesis Providers: Sandra Wade DO Referring MD: Sandra Wade DO Medicines: Monitored Anesthesia Care Complications: No immediate complications. Estimated blood loss: Minimal. Estimated Blood Loss: Estimated blood loss was minimal. Procedure: Pre-Anesthesia Assessment: - - Prior to the procedure, a History and Physicalwas performed, and patient medications and allergieswere reviewed. The patient is competent. The risks and benefits of the procedure and the sedation optionsand risks were discussed with the patient. Allquestions were answered and informed consent was obtained. Patient identification and proposed procedure were verified by the physician, the nurse, the anesthesiologist, the doctor osteopathic and thetechnician in the pre-procedure area in the endoscopy suite. Mental Status Examination: alert and oriented.Airway Examination: normal oropharyngeal airway and neck mobility. Respiratory Examination: clear to auscultation. CV Examination: normal. Prophylactic Antibiotics: The patient does not requireprophylactic antibiotics. Prior Anticoagulants: The patient has taken no anticoagulant or antiplatelet agents. ASA Grade Assessment: II - A patient with mild systemic disease. After reviewing the risks and benefits,the patient was deemed in satisfactory condition to undergo the procedure. The anesthesia plan was touse monitored anesthesia care (MAC). Immediately priorto administration of medications, the patient was re-assessed for adequacy to receive sedatives. The heart rate, respiratory rate, oxygen saturations, blood pressure, adequacy of pulmonary ventilation,and response to care were monitored throughout the procedure. The physical status of the patient was re-assessed after the procedure. After obtaining informed consent, the endoscope was passed under direct vision. Throughout theprocedure, the patient's blood pressure, pulse, and oxygen saturations were monitored continuously. TheEndoscope was introduced through the mouth, and advanced tothe third part of duodenum. The upper GI endoscopy was accomplished without difficulty. The patienttolerated the procedure well. Findings: The examined duodenum was normal. Diffuse moderately erythematous mucosa without bleeding was found in the stomach. Biopsies weretaken with a cold forceps for histology. Estimated blood loss was minimal. The Z-line was irregular and was found 38 cm fromthe incisors. Biopsies were taken with a cold forcepsfor histology. Estimated blood loss was minimal. Suspect gastroparesis due to absence ofperistalsis. Procedure Code(s): --- Professional --- 62792, Esophagogastroduodenoscopy, flexible, transoral; with biopsy, single or multiple Diagnosis Code(s): --- Professional --- K31.89, Other diseases of stomach and duodenum K31.84, Gastroparesis R10.13, Epigastric pain CPT copyright 202 [employer]. All rights reserved. The codes documented in this report are preliminary and upon braille coder reviewmay be revised to meet current compliance requirements. SANDRA Wade DO 07/27/2025 8:44:35 AM This report has been signed electronically.Sandra Wade DO Number of Addenda: 0 Note Initiated On: 07/27/2025 8:26 AM Scope In: Scope Out: Endoscopy Department at [facility] - [address] [place], [place] [phone] IMPRESSION: - Normal examined duodenum. - Erythematous mucosa in the stomach. Biopsied. - Gastroparesis. Recommendation: - Discharge patient to home. - Gastroparesis diet. - Continue present medications. - Await pathology results. Sandra Wade DO GI~PROCEDURE ORDERABLES Final Re sult * Tissue exam (07/27/2025 8:35 AM EDT) Final Diagnosis A. Stomach, random sites, biopsy: - Gastric antral and oxyntic type mucosa with patchy chronic and focal active inflammation including occasional basilar lymphoid aggregates. - Focal surface erosion is noted in 1 fragment of antral type mucosa. - No intestinal metaplasia identified. - No Helicobacter pylori are identified on hematoxylin and eosin stained sections. Because of the presence of chronic and focal active inflammation, an immunohistochemical study for Helicobacter pylori is performed to exclude morphologically occult involvement by Helicobacter pylori. Although focal background staining makes interpretation a challenge, the immunohistochemical study is considered NEGATIVE for Helicobacter pylori (appropriate control reviewed). B. Gastroesophageal junction, biopsy: - Esophageal squamous mucosa with few intraepithelial eosinophils (maximum of one intraepithelial eosinophil in a high-power field) and reactive epithelial changes including focal basilar hyperplasia and parakeratosis along with elongation of subepithelial vascular papillae. - Gastric cardiac type mucosa with chronic inflammation. - No intestinal metaplasia and no dysplasia identified. 12:26 PM EDT [facility] Gross Description A. Stomach, random gastric bx's: Labeled random ga stomach . Received in formalin are four soft, huston-red tissue fragments measuring approximately 0.3 cm in greatest diameter, which are wrapped in paper and submitted in toto in one cassette, four pieces, multiple levels. B. Esophagus, ge junction bx's: Labeled GE juncti esophagus . Received in formalin is a solitary, soft, white-red, 0.4 cm in greatest diameter tissue fragment which is wrapped in paper and submitted in toto in one cassette, one piece, multiple levels. TS 12:26 PM EDT [facility] Disclaimer NOTE: The immunohistochemical tests and in situ hybridization tests were developed and their performance characteristics were determined by [facility]. They have not been cleared or approved by the U.S. Food and Drug Administration. The FDA has determined that such clearance or approval is not necessary. These tests are used for clinical purposes. They should not be regarded as investigational or for research. This laboratory is certified under the Clinical Laboratory Improvement Amendments of 1988 (CLIA) as qualified to perform high complexity clinical laboratory testing. (controls appropriate) Unless otherwise specified, all tissue is 10% NB formalin fixed and paraffin embedded. 12:26 PM EDT [facility] Tissue Stomach structure / Unknown 07/27/2025 8:35 AM EDT 07/27/2025 10:40 AM EDT Tissue specimen (specimen) Esophageal structure / Unknown 07/27/2025 8:36 AM EDT 07/27/2025 10:40 AM EDT us Sandra Wade DO LAB PATHOLOGY ORDERABLES Final R esult [facility] [address] [place] [address], * ANT SCREENING DIGITAL (05/25/2024 11:50 AM EDT) Anatomical Region Laterality Modality Mammography 05/25/2024 9:50 AM EDT Narrative 05/25/2024 11:[address] [facility] Diagnostic Imaging Department [address] [place] [address] Patient: SASHA ROUSSEAU /Age/Sex: 1965 - 59 - F Unit#: [id number] Location/Status: SPDIMAM/REG CLI Mnemonic/Ordering Site: DIGSC/SPMAM Ordering Physician: CLAUDY JUDD MD Ant Screening Digital - 05/25/24 - 1013 Report Status:Signed EXAM: [facility] Screening Digital EXAM DATE AND TIME: 05/25/2024 10:13 AM HISTORY: Screening. Reduction mammoplasty in 1983. COMPARISON: 02/17/23, 11/09/18, 05/20/15 TECHNIQUE: Bilateral digital breast tomosynthesis was performed in the CC and MLO projections. Computer aided detection with Sherpany 3D 3.1 was employed. TISSUE DENSITY: a. [...] Procedure Note Yas Berman MD - 09/13/2024 [facility] Diagnostic Imaging Department [address] [place], [place] [id number] Patient: SASHA ROUSSEAU /Age/Sex: 1965 - 59 - F Unit#: [id number] Location/Status: SPDIMAM/REG CLI Mnemonic/[facility]ing [facility] Ordering Physician: CLAUDY JUDD MD [facility] Screening Digital - 05/25/24 - 1013 Report Status:Signed EXAM: [facility] Screening Digital EXAM DATE AND TIME: 05/25/2024 10:13 AM HISTORY: Screening. Reduction mammoplasty in 1983. COMPARISON: 02/17/23, 11/09/18, 05/20/15 TECHNIQUE: Bilateral digital breast tomosynthesis was performed in the CCand MLO projections. Computer aided detection with Sherpany 3D 3.1was employed. TISSUE DENSITY: a. The [...] Final Result * HIV Screening (04/17/2024) Pathologist [facility] HIV Screening abstracted [facility] Provider HEALTH MAINTENANCE Final Result * Hepatitis C Screening (04/17/2024) Pathologist [facility] Hepatitis C Screening abstracted [facility] Provider HEALTH MAINTENANCE Final Result * Urine Albumin Creatinine Ratio (02/28/2024) Pathologist [facility] Urine Albumin Creatinine Ratio abstracted [facility] Provider HEALTH MAINTENANCE Final Result * Diabetes Foot Exam (01/19/2024) Pathologist [facility] Diabetes: Annual Foot Exam abstracted [facility] Provider HEALTH MAINTENANCE Final Result * Colonoscopy (06/28/2015) Pathologist [facility] Colonoscopy no interpretation , abstracted Anatomical Region Laterality Modality Other Result [facility] Provider HEALTH MAINTENANCE Final Result * Cervical Cancer Screening: HPV (01/13/2012) Pathologist [facility] Cervical Cancer Screening: HPV negative, abstracted Result [facility] Provider HEALTH MAINTENANCE Final Result from Last 3 Months or Most Recently Relevant to Health Maintenance Insurance [facility] [employer] Care Teams Senior Linux Unix Administrator Relationship Specialty Start Date End Date Claudy Judd MD [address] [place] [phone] PCP - General Internal Medicine 06/13/21
--- OUTSIDE RECORDS SUMMARY | 2025-08-21 18:00 | XMS_ITS | Encounter Summary ---
Author Organization [facility] Address [address] [place] [address] Care Team Providers Care Tugboat Dispatcher Name Role Phone Gail Judd MD Primary Care Provider [phone] Encounter Details Date Type Department Care Team (Late st Contact Info) Description 08/21/2025 Telephone Gastroenterology - [place] [address] [facility] [address] [place] [phone] Ernestina Nichols NP 175 [facility] [address] [place] [address] Social History Tobacco Use Types Packs/Day Years [...] as of this encounter Progress Notes * Onelia Mendoza MA - 08/21/2025 10:14 AM EDT Pt on wait list to be seen sooner than 12/12/25 appt. LM for pt to call back- Please offer 09/05/25 or if any sooner availabilities documented in this encounter Plan of Treatment Upcoming Encounters Date Type Department Care Team (Late st Contact Info) Description 08/23/2025 1:30 PM EDT Office Visit Internal Medicine - [place] 175 [facility] 200 [place] [phone] Gail Judd MD 175 [facility] 200 [place] [address] 09/05/2025 2:15 PM EDT Office Visit Endocrinology [address] [phone] Lay Rawls PA [address] [place] [address] 09/06/2025 2:00 PM EDT Nutrition Internal Medicine - [place] 175 [facility] 200 [place] [phone] 175 [place] [phone] 09/13/2025 1:45 PM EDT Office Visit Orthopedic Surgery - [place] 250 175 [facility] 250 [place] [phone] Jero Steven DPM 175 [facility] 250 [place] [address] 09/27/2025 2:40 PM EDT Office Visit [facility] - [address] [place] [phone] Nataliya Garrett, BLOSSOM [address] [place] [address] [address] [place] [address] 10/11/2025 9:15 AM EST Office Visit Bariatric Surgery - [place] 175 [facility] 120 [place] [phone] Sadi Read MD 230 [place] [phone] 12/12/2025 1:00 PM EST Office Visit Gastroenterology - [place] [address] [place] [phone] Ernestina Nichols NP 175 [facility] 200 [place] [address] 12/19/2025 1:15 PM EST Office Visit Pulmonology - [place] 175 [facility] 200 [place] [phone] Ioana Carbajal MD [address] [address] documented as of this encounter Visit Diagnoses Not on filedocumented in this encounter Additional Health Concerns Assessment Noted Time PHQ-9 Depression Total Score: 12 025 11:52 AM EST documented as of this encounter Care Teams Tugboat Dispatcher Relationship Specialty Start Date End Date Gail Judd MD [address] [phone] PCP - General Internal Medicine 06/13/21 documented as of this encounter
--- OUTSIDE RECORDS SUMMARY | 2025-08-21 18:00 | XMS_ITS | Encounter Summary ---
Author Organization [facility] Address [address] [place] [address] Care Team Providers Care Cork Insulator Helper Name Role Phone Gail uJdd MD Primary Care Provider [phone] Reason for Visit * Reason Onset Date Comments Provider Call Back 07/25/2025 Encounter Details Date Type Department Care Team (Late st Contact Info) Description 07/25/2025 Telephone [facility] - [address] [phone] Lay Rawls PA [address] [place] [address] Social History Tobacco Use Types Packs/Day Years [...] as of this encounter Progress Notes * Karey Lopez RN - 07/26/2025 2:17 PM EDT Called patient, procedure rescheduled- full stomach Mychart message sent from GI as to what should be held in regards to DM medications She has read it and verbalizes understanding * Bon Grajeda - 07/25/2025 11:40 AM EDT Pt seeking advice from provider because she is currently on a liquid diet due to an endoscopy procedure that was done today. Pt wants to discuss how she should take Lantus and Humalog. Please call ptat [phone] documented in this encounter Plan of Treatment Upcoming Encounters Date Type Department Care Team (Late st Contact Info) Description 08/23/2025 1:30 PM EDT Office Visit Internal Medicine - [place] [address] [phone] Gail Judd MD [address] [phone] 09/05/2025 2:15 PM EDT Office Visit Endocrinology [address] [phone] Lay Rawls PA 305 [place] [address] 09/06/2025 2:00 PM EDT Nutrition Internal Medicine [facility] [address] [phone] Delia Holt, ROSEMARIE 175 [place] [phone] 09/13/2025 1:45 PM EDT Office Visit Orthopedic Surgery [facility] 250 175 [facility] 250 [place] [phone] Jero Steven DPM 175 [facility] 250 [place] [address] 09/27/2025 2:40 PM EDT Office Visit [facility] - [facility] [address] [place] [address] [place] [address] Nataliya Garrett NP [address] [place] [address] [address] [place] [address] 10/11/2025 9:15 AM EST Office Visit Bariatric Surgery - [place] 175 [facility] 120 [place] [phone] Sadi Read MD 230 [place] [phone] 12/12/2025 1:00 PM EST Office Visit Gastroenterology - [place] [address] [place] [phone] Ernestina Nichols NP 175 [facility] 200 [place] [address] 12/19/2025 1:15 PM EST Office Visit Pulmonology - [place] 175 [facility] 200 [place] [phone] Ioana Carbajal MD [address] [address] documented as of this encounter Visit Diagnoses Not on filedocumented in this encounter Additional Health Concerns Assessment Noted Time PHQ-9 Depression Total Score: 12 025 11:52 AM EST documented as of this encounter Care Teams Cork Insulator Helper Relationship Specialty Start Date End Date Gail Judd MD [address] [phone] PCP - General Internal Medicine 06/13/21 documented as of this encounter
== END 2025-08-21 15:15 | disposition home or self-care (01) ==
LOC: HO.HSM 14:56
PROVIDERS: Visit Provider Psychiatry & Neurology Neurology
DX: G43.019 Migraine without aura, intractable, without status migrainosus (principal); G25.81 Restless legs syndrome; E11.40 Type 2 diabetes mellitus with diabetic neuropathy, unspecified
CPT/HCPCS: 99214

== ENCOUNTER 2025-08-21 14:56 | Outpatient (REF) | payer OTHER, SELFPAY | END 2025-08-21 14:57 | disposition home or self-care (01) | LOC: HO.LAB 14:56 | PROVIDERS: PCP Internal Medicine; Visit Provider Psychiatry & Neurology Neurology | DX: G43.019 Migraine without aura, intractable, without status migrainosus (principal); G25.81 Restless legs syndrome; E11.40 Type 2 diabetes mellitus with diabetic neuropathy, unspecified; Z79.899 Other long term (current) drug therapy | CPT/HCPCS: 36415; 85652; 99212 ==